=== PATIENT | male | born 1960 | race Caucasian/White ===

== ENCOUNTER 2018-04-03 14:05 | Emergency (ER) | payer MEDICARE, MEDICAID ==
[~2018-04-03] VITALS: Ht 195.6 cm; Wt 46.5 kg
[~2018-04-03 14:05] MED LIST: CLIN-80 PO
[2018-04-03 14:07] VITALS: BP 147/78
[2018-04-03] MEDS ORDERED: doxycycline hyclate 100mg tablet.DR PO STA (14:52)
[2018-04-03] MEDS ORDERED: NAPR-56 PO (15:07)
[2018-04-03] MEDS ORDERED: DOXY100C43 PO (15:07)
== END 2018-04-03 15:13 | disposition home or self-care (01) ==
LOC: ER 14:05
DX: L02.414 Cutaneous abscess of left upper limb (principal); L02.415 Cutaneous abscess of right lower limb; L03.114 Cellulitis of left upper limb; L03.113 Cellulitis of right upper limb; J44.9 Chronic obstructive pulmonary disease, unspecified; G89.29 Other chronic pain; F15.10 Other stimulant abuse, uncomplicated; Z98.890 Other specified postprocedural states; Z56.0 Unemployment, unspecified; Z60.2 Problems related to living alone; Z59.0 Homelessness; Z88.2 Allergy status to sulfonamides; Z79.899 Other long term (current) drug therapy
CPT/HCPCS: 99283; A6449

== ENCOUNTER 2018-04-14 20:20 | Inpatient (IN) | payer MEDICARE, MEDICAID ==
[~2018-04-14] VITALS: Ht 180.3 cm; Wt 86.4 kg
[~2018-04-14 20:20] MED LIST changes: -CLIN-80 PO; +CLIN300C85 PO; +DOXY100C43 PO; +NAPR-56 PO
[2018-04-15] MEDS ORDERED: ondansetron/PF 4mg/2ml inj IV ONE (00:55)
[2018-04-15] MEDS ORDERED: morphine 4 MG/ML inj SYRINge IV ONE (00:55)
[2018-04-15] MEDS ORDERED: normal saline 1000ML IV soln IVB ONE (00:55)
[2018-04-15 01:07] LABS: BASOPHILS % (AUTO) 0.2 % (0-1); EOSINOPHILS # (AUTO) 0.2 X10'3 (0-0.9); EOSINOPHILS % (AUTO) 1.3 % (0-6); HEMATOCRIT 44.4 % (42.0-52.0); HEMOGLOBIN 15.6 g/dl (14.0-17.9); LYMPHOCYTES # (AUTO) 0.7 X10'3 (1.1-4.8); LYMPHOCYTES % (AUTO) 4.3 % (21-51); MEAN CORPUSCULAR HEMOGLOBIN 32.5 PG (27.0-31.0); MEAN CORPUSCULAR HGB CONC 35.2 % (33.0-36.5); MEAN CORPUSCULAR VOLUME 92.4 FL (78-98); MEAN PLATELET VOLUME 7.1 FL (7.4-10.4); MONOCYTES # (AUTO) 0.4 X10'3 (0-0.9); MONOCYTES % (AUTO) 2.3 % (2-12); NEUTROPHILS # (AUTO) 15.5 X10'3 (1.8-7.7); NEUTROPHILS % (AUTO) 91.9 % (42-75); PLATELET COUNT 281 X10'3 (140-440); RED CELL DISTRIBUTION WIDTH 14.3 % (11.5-14.5); WHITE BLOOD COUNT 16.9 X10'3 (4.5-11.0)
[2018-04-15 01:17] LABS: PROTHROMBIN TIME 9.9 SECONDS (9.0-12.0)
[2018-04-15] MEDS ORDERED: iohexol 300mg/ml 100ml inj. ONE (01:21)
[2018-04-15 01:22] LABS: ALANINE AMINOTRANSFERASE 18 U/L (12-78); ALBUMIN 3.8 G/DL (3.4-5.0); ALKALINE PHOSPHATASE 91 IU/L (46-116); ANION GAP 8 (8-16); ASPARTATE AMINO TRANSFERASE 15 U/L (10-37); BILIRUBIN,TOTAL 0.5 MG/DL (0.1-1.0); BLOOD UREA NITROGEN 16 MG/DL (7-18); CALCIUM 9.4 MG/DL (8.5-10.1); CHLORIDE 104 MMOL/L (99-107); CREATINE KINASE 58 U/L (39-308); CREATININE 0.94 MG/DL (0.60-1.10); GLUCOSE 112 MG/DL (70-104); LIPASE 166 U/L (73-393); POTASSIUM 4.3 MMOL/L (3.5-5.1); SODIUM 139 MMOL/L (135-145); TOTAL CARBON DIOXIDE 27.3 MMOL/L (24-32); TOTAL PROTEIN 7.7 G/DL (6.4-8.2); eGFR 83 ML/MIN
[2018-04-15 03:29] LABS: CLARITY,URINE CLEAR (Clear); COLOR,URINE YELLOW (Yellow); GLUCOSE, URINE NEGATIVE (Neg); KETONES,URINE NEGATIVE (Neg); LEUKOCYTE ESTERASE ,URINE NEGATIVE (Neg); NITRITES, URINE NEGATIVE (Neg); OCCULT BLOOD,URINE NEGATIVE (Neg); PROTEIN,URINE NEGATIVE (Neg); UROBILINOGEN,URINE 0.2 E.U/dL (0.2-1.0)
[2018-04-15 03:30] LABS: UA COLLECTION TYPE CLN CATCH MIDSTREAM
[2018-04-15] MEDS ORDERED: ondansetron/PF 4mg/2ml inj IV PRN (04:45)
[2018-04-15] MEDS: normal saline 1000ml 1,000 ML IV SCH ×3 (06:21→16:58)
[2018-04-15] MEDS: morphine 4 MG/ML inj SYRINge IV PRN ×4 (06:35→20:39)
[2018-04-15] MEDS: LORazepam 2 mg/ml vial IV PRN ×3 (06:41→16:23)
[2018-04-15] MEDS ORDERED: NO HOME MEDS (07:24)
[2018-04-15 09:11] LABS: URINE AMPHETAMINE SCREEN NEGATIVE (Neg); URINE BARBITUATE SCREEN NEGATIVE (Neg); URINE BENZODIAZEPINES SCREEN NEGATIVE (Neg); URINE CANNABINOID SCREEN NEGATIVE (Neg); URINE COCAINE SCREEN NEGATIVE (Neg); URINE METHADONE SCREEN NEGATIVE (Neg); URINE OPIATE SCREEN POSITIVE (Neg); URINE PHENCYCLIDINE SCREEN NEGATIVE (Neg)
[2018-04-15 11:00] VITALS: BP 126/83
[2018-04-15 19:00] VITALS: BP 122/83
[2018-04-15] MEDS ORDERED: diatr meglu/diatrizoate 30ml oral sol.-(3 dose) bottle PO ONE (20:40)
[2018-04-15] MEDS ORDERED: diatrozoate meglu/diatrozoate sod (37% iodine) 120ML oral solution PO ONE (22:00)
[2018-04-16] VITALS: BP 121/83
[2018-04-16] MEDS: morphine 4 MG/ML inj SYRINge IV PRN (02:24)
[2018-04-16] MEDS: normal saline 1000ml 1,000 ML IV SCH ×2 (03:35→22:22)
[2018-04-16] MEDS: LORazepam 2 mg/ml vial IV PRN ×2 (05:03→17:25)
[2018-04-16 05:27] LABS: BASOPHILS % (AUTO) 0.2 % (0-1); EOSINOPHILS # (AUTO) 0.2 X10'3 (0-0.9); EOSINOPHILS % (AUTO) 1.8 % (0-6); HEMATOCRIT 39.6 % (42.0-52.0); HEMOGLOBIN 14.1 g/dl (14.0-17.9); LYMPHOCYTES % (AUTO) 10.1 % (21-51); MEAN CORPUSCULAR HEMOGLOBIN 32.8 PG (27.0-31.0); MEAN CORPUSCULAR HGB CONC 35.7 % (33.0-36.5); MEAN CORPUSCULAR VOLUME 91.8 FL (78-98); MEAN PLATELET VOLUME 7.4 FL (7.4-10.4); MONOCYTES # (AUTO) 0.4 X10'3 (0-0.9); MONOCYTES % (AUTO) 3.6 % (2-12); NEUTROPHILS # (AUTO) 8.6 X10'3 (1.8-7.7); NEUTROPHILS % (AUTO) 84.3 % (42-75); PLATELET COUNT 205 X10'3 (140-440); RED BLOOD COUNT 4.31 X10'6 (4.70-6.10); RED CELL DISTRIBUTION WIDTH 13.9 % (11.5-14.5); WHITE BLOOD COUNT 10.1 X10'3 (4.5-11.0)
[2018-04-16 05:51] LABS: ALANINE AMINOTRANSFERASE 18 U/L (12-78); ALBUMIN 2.9 G/DL (3.4-5.0); ALBUMIN/GLOBULIN RATIO 0.9 (1.1-1.5); ALKALINE PHOSPHATASE 69 IU/L (46-116); ANION GAP 11 (8-16); ASPARTATE AMINO TRANSFERASE 17 U/L (10-37); BILIRUBIN,TOTAL 0.8 MG/DL (0.1-1.0); BLOOD UREA NITROGEN 13 MG/DL (7-18); BUN/CREATININE RATIO 16.7 (5.4-32.0); CALCIUM 8.5 MG/DL (8.5-10.1); CHLORIDE 108 MMOL/L (99-107); CREATININE 0.78 MG/DL (0.60-1.10); GLUCOSE 78 MG/DL (70-104); SODIUM 141 MMOL/L (135-145); TOTAL CARBON DIOXIDE 22.1 MMOL/L (24-32); TOTAL PROTEIN 6.2 G/DL (6.4-8.2); eGFR > 90 ML/MIN
[2018-04-16 07:00] VITALS: BP 128/80
[2018-04-16 11:29] VITALS: BP 116/69
[2018-04-16 19:30] VITALS: BP 93/59
[2018-04-17] VITALS: BP 96/58
[2018-04-17 05:43] LABS: BASOPHILS % (AUTO) 0.5 % (0-1); EOSINOPHILS # (AUTO) 0.2 X10'3 (0-0.9); EOSINOPHILS % (AUTO) 2.6 % (0-6); HEMATOCRIT 38.6 % (42.0-52.0); HEMOGLOBIN 13.7 g/dl (14.0-17.9); LYMPHOCYTES # (AUTO) 1.3 X10'3 (1.1-4.8); LYMPHOCYTES % (AUTO) 18.5 % (21-51); MEAN CORPUSCULAR HEMOGLOBIN 32.9 PG (27.0-31.0); MEAN CORPUSCULAR HGB CONC 35.5 % (33.0-36.5); MEAN CORPUSCULAR VOLUME 92.6 FL (78-98); MEAN PLATELET VOLUME 7.4 FL (7.4-10.4); MONOCYTES # (AUTO) 0.4 X10'3 (0-0.9); MONOCYTES % (AUTO) 5.8 % (2-12); NEUTROPHILS % (AUTO) 72.6 % (42-75); PLATELET COUNT 183 X10'3 (140-440); RED BLOOD COUNT 4.17 X10'6 (4.70-6.10); RED CELL DISTRIBUTION WIDTH 14.5 % (11.5-14.5); WHITE BLOOD COUNT 6.9 X10'3 (4.5-11.0)
[2018-04-17 06:00] LABS: ALANINE AMINOTRANSFERASE 13 U/L (12-78); ALBUMIN 2.7 G/DL (3.4-5.0); ALBUMIN/GLOBULIN RATIO 0.8 (1.1-1.5); ALKALINE PHOSPHATASE 73 IU/L (46-116); ANION GAP 8 (8-16); ASPARTATE AMINO TRANSFERASE 11 U/L (10-37); BILIRUBIN,TOTAL 0.3 MG/DL (0.1-1.0); BLOOD UREA NITROGEN 15 MG/DL (7-18); BUN/CREATININE RATIO 19.2 (5.4-32.0); CALCIUM 8.1 MG/DL (8.5-10.1); CHLORIDE 109 MMOL/L (99-107); CREATININE 0.78 MG/DL (0.60-1.10); GLUCOSE 100 MG/DL (70-104); SODIUM 141 MMOL/L (135-145); TOTAL CARBON DIOXIDE 24.1 MMOL/L (24-32); eGFR > 90 ML/MIN
[2018-04-17 07:00] VITALS: BP 107/73
[2018-04-17] MEDS: LORazepam 2 mg/ml vial IV PRN (07:47)
[2018-04-17] MEDS: normal saline 1000ml 1,000 ML IV SCH (07:52)
[2018-04-17 11:00] VITALS: BP 109/73
[2018-04-20] MEDS ORDERED: DOXY100C43 PO (10:25)
== END 2018-04-17 13:33 | disposition home or self-care (01) | DRG 389 ==
LOC: ER 20:21 → ED HOLD 04-15 04:41 → SUR 3N 04-15 10:35
PROVIDERS: ADMIT Internal Medicine; ATTEND Family Medicine
PROC: 0D9670Z Drainage of Stomach with Drainage Device, Via Natural or Artificial Opening (ICD-10-PCS; principal; 2018-04-15)
PROC: BW211ZZ Computerized Tomography (CT Scan) of Abdomen and Pelvis using Low Osmolar Contrast (ICD-10-PCS; 2018-04-15)
DX: K56.609 Unspecified intestinal obstruction, unspecified as to partial versus complete obstruction (principal); J98.11 Atelectasis; F15.90 Other stimulant use, unspecified, uncomplicated; F17.210 Nicotine dependence, cigarettes, uncomplicated; G89.29 Other chronic pain; J44.9 Chronic obstructive pulmonary disease, unspecified; Z59.0 Homelessness; Z90.49 Acquired absence of other specified parts of digestive tract; Z88.2 Allergy status to sulfonamides; Z88.8 Allergy status to other drugs, medicaments and biological substances; Z71.6 Tobacco abuse counseling
CPT/HCPCS: 36415; 71045; 74176; 74177; 80053; 80305; 80320; 81003; 82550; 83690; 85025; 85610; 87070; 93005; 99285; J2060; J2270; J2405; J7030; Q9963; Q9967

== ENCOUNTER 2018-08-18 16:27 | Emergency (ER) | payer MEDICARE, OTHER ==
[~2018-08-18] VITALS: Ht 195.6 cm; Wt 59.1 kg
[2018-08-18 16:35] VITALS: BP 108/78
[2018-08-18] MEDS ORDERED: ketorolac trometh inj. 60 MG/2 ML VIAL IM ONE (18:00)
[2018-08-18] MEDS ORDERED: MELO-100 PO (18:09)
== END 2018-08-18 18:26 | disposition home or self-care (01) ==
LOC: ER 16:28
DX: S42.002A Fracture of unspecified part of left clavicle, initial encounter for closed fracture (principal); S01.01XA Laceration without foreign body of scalp, initial encounter; J44.9 Chronic obstructive pulmonary disease, unspecified; G89.29 Other chronic pain; F15.90 Other stimulant use, unspecified, uncomplicated; Z98.890 Other specified postprocedural states; Z60.2 Problems related to living alone; Z59.0 Homelessness; Z56.0 Unemployment, unspecified; Z88.2 Allergy status to sulfonamides; Z79.899 Other long term (current) drug therapy; W01.0XXA Fall on same level from slipping, tripping and stumbling without subsequent striking against object, initial encounter; Y93.89 Activity, other specified; Y92.89 Other specified places as the place of occurrence of the external cause; Y99.8 Other external cause status
CPT/HCPCS: 70450; 73030; 96372; 99284; A4565; J1885

== ENCOUNTER 2020-02-13 22:54 | Inpatient (IN) | payer MEDICARE, MEDICAID ==
[~2020-02-13] VITALS: Ht 185.4 cm; Wt 68.2 kg
[~2020-02-13 22:54] MED LIST changes: -CLIN300C85 PO; -DOXY100C43 PO; +MELO-100 PO; -NAPR-56 PO
[2020-02-13] MEDS ORDERED: normal saline 1000ML IV soln IVB ONE (23:10)
[2020-02-13] MEDS ORDERED: ondansetron/PF 4mg/2ml inj IV ONE (23:10)
[2020-02-13] MEDS: morphine 4 MG/ML inj SYRINge IV PRN (23:17)
[2020-02-13 23:28] LABS: BASOPHILS # (AUTO) 0.1 X10'3 (0-0.2); BASOPHILS % (AUTO) 0.4 % (0-1); EOSINOPHILS % (AUTO) 0.2 % (0-6); HEMATOCRIT 45.4 % (42.0-52.0); LYMPHOCYTES # (AUTO) 1.2 X10'3 (1.1-4.8); LYMPHOCYTES % (AUTO) 7.8 % (21-51); MEAN CORPUSCULAR HEMOGLOBIN 32.4 PG (27.0-31.0); MEAN CORPUSCULAR HGB CONC 35.2 g/dL (33.0-36.5); MEAN PLATELET VOLUME 7.3 FL (7.4-10.4); MONOCYTES # (AUTO) 0.8 X10'3 (0-0.9); MONOCYTES % (AUTO) 4.8 % (2-12); NEUTROPHILS # (AUTO) 13.9 X10'3 (1.8-7.7); NEUTROPHILS % (AUTO) 86.8 % (42-75); PLATELET COUNT 274 X10'3 (140-440); RED BLOOD COUNT 4.93 X10'6 (4.70-6.10); RED CELL DISTRIBUTION WIDTH 13.6 % (11.5-14.5)
--- NOTE | 2020-02-13 23:30 | NUR ---
PT'S RIGHT ARM HAD REDNESS AND SWELLING THAT APPEARED TO BE AN ALLERGIC REACTION. IT WAS LOCAL ONLY. IT OCCURED PRIOR TO GETTING MORPHINE AND ZOFRAN. PT DENIES CHEST PAIN, SOB, CHEST TIGHTNESS, OR ITCHINESS IN THROAT. PT STATES HE FEEL'S FINE. DR. DENNIS MADE AWARE. NO OTHER ISSUES.
--- NOTE | 2020-02-13 23:40 | NUR ---
PT STATES HE'S NOT ABLE TO VOID AT THIS TIME. WILL WAIT UNTIL FLUIDS ARE DONE INFUSING.
[2020-02-13 23:42] LABS: ALANINE AMINOTRANSFERASE 13 U/L (12-78); ALBUMIN 3.5 G/DL (3.4-5.0); ALBUMIN/GLOBULIN RATIO 0.9 (1.1-1.5); ALKALINE PHOSPHATASE 97 IU/L (46-116); ANION GAP 9 (8-16); ASPARTATE AMINO TRANSFERASE 17 U/L (10-37); BILIRUBIN,TOTAL 0.4 MG/DL (0.1-1.0); BLOOD UREA NITROGEN 15 MG/DL (7-18); CALCIUM 8.9 MG/DL (8.5-10.1); CHLORIDE 103 MMOL/L (99-107); CREATININE 0.79 MG/DL (0.60-1.10); GLUCOSE 116 MG/DL (70-104); LIPASE 129 U/L (73-393); POTASSIUM 4.3 MMOL/L (3.5-5.1); SODIUM 138 MMOL/L (135-145); TOTAL CARBON DIOXIDE 25.8 MMOL/L (24-32); TOTAL PROTEIN 7.4 G/DL (6.4-8.2); eGFR > 90 ML/MIN
[2020-02-13] MEDS ORDERED: diphenhydrAMINE 50 mg/ml inj IV ONE (23:50)
[2020-02-14] MEDS ORDERED: NO HOME MEDS (00:27)
[2020-02-14] MEDS: morphine 4 MG/ML inj SYRINge IV PRN (00:32)
[2020-02-14] MEDS ORDERED: LIDOcaine 2% 10ml TOPICAL JELLY (Urojet) MM ONE (00:55)
[2020-02-14] MEDS ORDERED: LORazepam 2 mg/ml vial IV ONE (00:55)
--- NOTE | 2020-02-14 01:04 | NUR ---
RESISTANCE FELT IN BOTH NOSTRILS WHEN ATTEMPTING TO PLACE NG TUBE SIZE 16F. PT MOVES HEAD A LOT AND BECOMES ANXIOUS. PT GIVEN IV ATIVAN AND LIDOCAIN JELLY IN RIGHT NOSTRIL TO ASSIST WITH PLACING AN NG TUBE. WILL USE SILICONE NG TUBE FOR 2ND ATTEMPT. DR DENNIS AND DR. COVARRUBIAS MADE AWARE.
[2020-02-14] MEDS ORDERED: ondansetron/PF 4mg/2ml inj IV PRN (01:10)
[2020-02-14] MEDS ORDERED: morphine 2 MG/ML inj. syringe IV PRN (01:10)
[2020-02-14] MEDS: potassium Cl 20mEq in NS 1,000 ML IV SCH ×3 (02:10→16:00)
--- NOTE | 2020-02-14 02:10 | NUR ---
I have received report from Delfina ED RN and had the opportunity to ask questions and assume patient care.
[2020-02-14 02:30] VITALS: BP 168/98
[2020-02-14 03:53] VITALS: BP 162/91
--- NOTE | 2020-02-14 06:30 | NUR ---
Patient in room [facility] 349. I have received report from JOANNE ART and had the opportunity to ask questions and assume patient care.
--- NOTE | 2020-02-14 06:39 | NUR ---
Problems reprioritized. Patient report given, questions answered & plan of care reviewed with KAELYN Mehta.
[2020-02-14] MEDS: morphine 2 MG/ML inj. syringe IV PRN ×2 (09:41→15:58)
[2020-02-14 10:52] VITALS: BP 151/98
[2020-02-14 11:00] VITALS: BP 127/59
[2020-02-14] MEDS: heparin, porcine 5000 units/ml vial SQ SCH ×2 (11:29→19:41)
[2020-02-14] MEDS ORDERED: hydrALAZINE 20mg/ml inj. IV PRN (12:20)
[2020-02-14 12:46] LABS: CLARITY,URINE SLIGHTLY CLOUDY (Clear); COLOR,URINE STRAW (Yellow); GLUCOSE, URINE NEGATIVE (Neg); KETONES,URINE NEGATIVE (Neg); LEUKOCYTE ESTERASE ,URINE SMALL (Neg); NITRITES, URINE NEGATIVE (Neg); OCCULT BLOOD,URINE NEGATIVE (Neg); PH,URINE 5.5 (4.8-8.0); PROTEIN,URINE NEGATIVE (Neg); UA COLLECTION TYPE NON-SPECIFIED; UROBILINOGEN,URINE 0.2 E.U/dL (0.2-1.0)
[2020-02-14 12:52] LABS: BACTERIA,URINE FEW /HPF (Neg); MUCUS STRANDS NONE SEEN /LPF (Neg); RBC,URINE NONE SEEN /HPF (0-2); SQUAMOUS EPITHELIAL CELL,UR FEW /LPF (FEW); WBC CLUMPS,URINE FEW /HPF (NEGATIVE)
--- NOTE | 2020-02-14 17:31 | NUR ---
Patient coughed began to cough and NG ended up in mouth. Patient has had bowel movement during shift and 500 mL out of clear liquid from NG. Hospitalist Okayed to leave out NG at this time.
[2020-02-14 18:00] VITALS: BP 126/76
--- NOTE | 2020-02-14 18:37 | NUR ---
Patient in room [facility] 349. I have received report from Tyson ART and had the opportunity to ask questions and assume patient care.
--- NOTE | 2020-02-14 19:30 | NUR ---
Problems reprioritized. Patient report given, questions answered & plan of care reviewed with DAVIS ART.
[2020-02-15] VITALS: BP 105/70
[2020-02-15] MEDS: potassium Cl 20mEq in NS 1,000 ML IV SCH ×3 (02:09→22:30)
[2020-02-15 05:16] LABS: BASOPHILS # (AUTO) 0.1 X10'3 (0-0.2); BASOPHILS % (AUTO) 0.7 % (0-1); EOSINOPHILS # (AUTO) 0.2 X10'3 (0-0.9); EOSINOPHILS % (AUTO) 2.6 % (0-6); HEMATOCRIT 43.9 % (42.0-52.0); HEMOGLOBIN 15.3 g/dl (14.0-17.9); LYMPHOCYTES # (AUTO) 1.5 X10'3 (1.1-4.8); LYMPHOCYTES % (AUTO) 22.4 % (21-51); MEAN CORPUSCULAR HEMOGLOBIN 32.7 PG (27.0-31.0); MEAN CORPUSCULAR HGB CONC 34.9 g/dL (33.0-36.5); MEAN CORPUSCULAR VOLUME 93.8 FL (78-98); MEAN PLATELET VOLUME 7.8 FL (7.4-10.4); MONOCYTES # (AUTO) 0.5 X10'3 (0-0.9); MONOCYTES % (AUTO) 6.8 % (2-12); NEUTROPHILS # (AUTO) 4.7 X10'3 (1.8-7.7); NEUTROPHILS % (AUTO) 67.5 % (42-75); PLATELET COUNT 225 X10'3 (140-440); RED BLOOD COUNT 4.68 X10'6 (4.70-6.10); RED CELL DISTRIBUTION WIDTH 13.7 % (11.5-14.5); WHITE BLOOD COUNT 6.9 X10'3 (4.5-11.0)
[2020-02-15 05:36] LABS: ALANINE AMINOTRANSFERASE 11 U/L (12-78); ALBUMIN 2.8 G/DL (3.4-5.0); ALBUMIN/GLOBULIN RATIO 0.8 (1.1-1.5); ALKALINE PHOSPHATASE 74 IU/L (46-116); ANION GAP 7 (8-16); ASPARTATE AMINO TRANSFERASE 18 U/L (10-37); BILIRUBIN,TOTAL 0.8 MG/DL (0.1-1.0); BLOOD UREA NITROGEN 12 MG/DL (7-18); BUN/CREATININE RATIO 14.1 (5.4-32.0); CALCIUM 8.5 MG/DL (8.5-10.1); CHLORIDE 107 MMOL/L (99-107); CREATININE 0.85 MG/DL (0.60-1.10); GLUCOSE 78 MG/DL (70-104); POTASSIUM 4.5 MMOL/L (3.5-5.1); SODIUM 141 MMOL/L (135-145); TOTAL CARBON DIOXIDE 26.8 MMOL/L (24-32); TOTAL PROTEIN 6.5 G/DL (6.4-8.2); eGFR > 90 ML/MIN
--- NOTE | 2020-02-15 06:37 | NUR ---
Problems reprioritized. Patient report given, questions answered & plan of care reviewed with Franny ART.
--- NOTE | 2020-02-15 06:47 | NUR ---
Patient in room [facility] 349. I have received report from KAELYN Olivas and had the opportunity to ask questions and assume patient care.
[2020-02-15 08:00] VITALS: BP 106/71
[2020-02-15] MEDS: heparin, porcine 5000 units/ml vial SQ SCH ×2 (10:04→19:36)
[2020-02-15 12:00] VITALS: BP 109/83
[2020-02-15] MEDS: morphine 2 MG/ML inj. syringe IV PRN (14:53)
--- NOTE | 2020-02-15 18:26 | NUR ---
Problems reprioritized. Patient report given, questions answered & plan of care reviewed with KAELYN Mcdaniel. pt resting in bed. Tolerated clear liquid diet well. medicated for pain PRN x1. Pt had BM x2 this shift.
[2020-02-15 20:00] VITALS: BP 114/72
--- NOTE | 2020-02-15 23:50 | NUR ---
Patient in room [facility] 349. I have received report from Susan ART and had the opportunity to ask questions and assume patient care.
[2020-02-15 23:55] VITALS: BP 114/64
--- NOTE | 2020-02-16 04:40 | NUR ---
Due to system unavailability all documentation completed is found in the paper chart during the following time frame: starting date: 02-15-2020 time: 2341 ending date: 02-16-2020 time:[id number]
[2020-02-16 05:17] LABS: BASOPHILS % (AUTO) 0.5 % (0-1); EOSINOPHILS # (AUTO) 0.3 X10'3 (0-0.9); EOSINOPHILS % (AUTO) 2.9 % (0-6); HEMATOCRIT 41.1 % (42.0-52.0); HEMOGLOBIN 14.7 g/dl (14.0-17.9); LYMPHOCYTES % (AUTO) 10.3 % (21-51); MEAN CORPUSCULAR HEMOGLOBIN 33.4 PG (27.0-31.0); MEAN CORPUSCULAR HGB CONC 35.8 g/dL (33.0-36.5); MEAN CORPUSCULAR VOLUME 93.3 FL (78-98); MEAN PLATELET VOLUME 7.7 FL (7.4-10.4); MONOCYTES # (AUTO) 0.6 X10'3 (0-0.9); MONOCYTES % (AUTO) 5.6 % (2-12); NEUTROPHILS % (AUTO) 80.7 % (42-75); PLATELET COUNT 203 X10'3 (140-440); RED BLOOD COUNT 4.41 X10'6 (4.70-6.10); RED CELL DISTRIBUTION WIDTH 13.4 % (11.5-14.5); WHITE BLOOD COUNT 9.9 X10'3 (4.5-11.0)
[2020-02-16 05:34] LABS: ALANINE AMINOTRANSFERASE 11 U/L (12-78); ALBUMIN 2.8 G/DL (3.4-5.0); ALBUMIN/GLOBULIN RATIO 0.8 (1.1-1.5); ALKALINE PHOSPHATASE 70 IU/L (46-116); ANION GAP 8 (8-16); ASPARTATE AMINO TRANSFERASE 16 U/L (10-37); BILIRUBIN,TOTAL 0.5 MG/DL (0.1-1.0); BLOOD UREA NITROGEN 9 MG/DL (7-18); BUN/CREATININE RATIO 12.2 (5.4-32.0); CALCIUM 8.4 MG/DL (8.5-10.1); CHLORIDE 107 MMOL/L (99-107); CREATININE 0.74 MG/DL (0.60-1.10); GLUCOSE 87 MG/DL (70-104); POTASSIUM 4.3 MMOL/L (3.5-5.1); SODIUM 139 MMOL/L (135-145); TOTAL CARBON DIOXIDE 24.3 MMOL/L (24-32); TOTAL PROTEIN 6.3 G/DL (6.4-8.2); eGFR > 90 ML/MIN
--- NOTE | 2020-02-16 06:29 | NUR ---
Problems reprioritized. Patient report given, questions answered & plan of care reviewed with Carmel ART.
--- NOTE | 2020-02-16 06:43 | NUR ---
Patient in room [facility] 349. I have received report from KAELYN Mcdaniel and had the opportunity to ask questions and assume patient care.
[2020-02-16] MEDS: potassium Cl 20mEq in NS 1,000 ML IV SCH (07:45)
[2020-02-16] MEDS: heparin, porcine 5000 units/ml vial SQ SCH (07:46)
[2020-02-16 07:53] VITALS: BP 98/54
[2020-02-16 11:03] VITALS: BP 106/69
--- NOTE | 2020-02-16 13:34 | NUR ---
Patient discharged back to his living situation. Patient declined going to the [facility]. Patient PIV removed with cannula intact. Patient taken from unit via wheelchair with x1 staff member. Patient alert, oriented and in no apparent distress at time of discharge. Patient had own clothing to wear and left right after finishing lunch. Patient declined taking discharge packet because he stated that it is just too much to take with him. The instructions were discussed with the patient and he stated an understanding. Patient was encouraged to follow up with the [facility] or a PCP, patient stated, "I'll be fine, I avoid doctors like the plague, I don't want to follow up".
--- NOTE | 2020-02-18 13:53 | NUR ---
Case management DC follow up: unable to contact, goes direct to recording, no ringing " not set up for vm"
== END 2020-02-16 13:07 | disposition home or self-care (01) | DRG 390 ==
LOC: ER 22:55 → ED HOLD 02-14 01:07 → SUR 3N 02-14 02:34
PROVIDERS: ADMIT Internal Medicine; ATTEND Internal Medicine
PROC: 0D9670Z Drainage of Stomach with Drainage Device, Via Natural or Artificial Opening (ICD-10-PCS; principal; 2020-02-14)
DX: K56.609 Unspecified intestinal obstruction, unspecified as to partial versus complete obstruction (principal); D72.829 Elevated white blood cell count, unspecified; F12.90 Cannabis use, unspecified, uncomplicated; F17.200 Nicotine dependence, unspecified, uncomplicated; J44.9 Chronic obstructive pulmonary disease, unspecified; G89.29 Other chronic pain; Z66 Do not resuscitate; Z80.0 Family history of malignant neoplasm of digestive organs; Z90.49 Acquired absence of other specified parts of digestive tract; Z59.0 Homelessness; Z87.19 Personal history of other diseases of the digestive system; Z88.2 Allergy status to sulfonamides; Z88.8 Allergy status to other drugs, medicaments and biological substances
CPT/HCPCS: 36415; 74018; 74176; 80053; 81001; 83605; 83690; 84145; 85025; 87081; 87088; 96361; 96374; 96375; 96376; 99285; G0378; J1200; J1644; J2060; J2270; J2405; J3480; J7030

== ENCOUNTER 2022-04-21 11:58 | Inpatient (IN) | payer MEDICAID, MEDICARE ==
[~2022-04-21] VITALS: Ht 193 cm; Wt 59.1 kg
[~2022-04-21 11:58] MED LIST changes: -MELO-100 PO; +NO HOME MEDS
[2022-04-21 13:37] LABS: BASOPHILS % (AUTO) 0.2 % (0-1); EOSINOPHILS % (AUTO) 0 % (0-6); HEMATOCRIT 45.3 % (42.0-52.0); HEMOGLOBIN 15.8 g/dl (14.0-17.9); LYMPHOCYTES # (AUTO) 0.6 X10'3 (1.1-4.8); LYMPHOCYTES % (AUTO) 2.8 % (21-51); MEAN CORPUSCULAR HEMOGLOBIN 32.2 PG (27.0-31.0); MEAN CORPUSCULAR HGB CONC 34.9 g/dL (33.0-36.5); MEAN CORPUSCULAR VOLUME 92.3 FL (78-98); MEAN PLATELET VOLUME 7.8 FL (7.4-10.4); MONOCYTES # (AUTO) 0.9 X10'3 (0-0.9); MONOCYTES % (AUTO) 4.5 % (2-12); NEUTROPHILS # (AUTO) 19.3 X10'3 (1.8-7.7); NEUTROPHILS % (AUTO) 92.5 % (42-75); PLATELET COUNT 250 X10'3 (140-440); RED CELL DISTRIBUTION WIDTH 13.9 % (11.5-14.5); WHITE BLOOD COUNT 20.8 X10'3 (4.5-11.0)
[2022-04-21 13:51] LABS: ALANINE AMINOTRANSFERASE 17 U/L (12-78); ALBUMIN 2.8 G/DL (3.4-5.0); ALBUMIN/GLOBULIN RATIO 0.6 (1.1-1.5); ALKALINE PHOSPHATASE 101 IU/L (46-116); ANION GAP 11 (8-16); ASPARTATE AMINO TRANSFERASE 21 U/L (10-37); BILIRUBIN,TOTAL 1.1 MG/DL (0.1-1.0); BLOOD UREA NITROGEN 43 MG/DL (7-18); BUN/CREATININE RATIO 40.6 (5.4-32.0); CALCIUM 8.7 MG/DL (8.5-10.1); CHLORIDE 97 MMOL/L (99-107); CREATININE 1.06 MG/DL (0.60-1.10); GLUCOSE 104 MG/DL (70-104); POTASSIUM 3.6 MMOL/L (3.5-5.1); SODIUM 134 MMOL/L (135-145); TOTAL CARBON DIOXIDE 26.1 MMOL/L (24-32); TOTAL PROTEIN 7.7 G/DL (6.4-8.2); eGFR 72 ML/MIN
[2022-04-21] MEDS ORDERED: CefTRIAXone 2gm/NS 100ml IVPB 100 ML IV ONE (16:55)
[2022-04-21] MEDS ORDERED: normal saline 1000ml 1,000 ML IV ONE (17:05)
[2022-04-21] MEDS ORDERED: normal saline 1000ML IV soln IVB ONE (17:05)
[2022-04-21] MEDS ORDERED: ondansetron/PF 4mg/2ml inj IV PRN (18:10)
[2022-04-21] MEDS ORDERED: mag hydrox/Alum hydrox/simeth 30ml oral suspension PO PRN (18:10)
[2022-04-21] MEDS ORDERED: magnesium hydroxide 30ml (MOM) UD suspension PO PRN (18:10)
[2022-04-21] MEDS ORDERED: acetaminophen 325mg tablet PO PRN (18:10)
[2022-04-21] MEDS ORDERED: cefTRIAXone 1g/NS 100ml IVPB 100 ML IV SCH ×2 (18:10→20:31)
[2022-04-21] MEDS: normal saline 1000ml 1,000 ML IV SCH (19:02)
[2022-04-21] MEDS ORDERED: predniSONE 20 mg tablet PO ONE (19:45)
[2022-04-21] MEDS ORDERED: albuterol 2.5 MG/3 ML nebule NEB PRN (19:45)
[2022-04-21] MEDS: docusate sod 100mg capsule PO SCH (20:00)
[2022-04-21] MEDS: azithromycin 250mg tablet PO SCH (20:14)
[2022-04-21] MEDS: enoxaparin 30mg/0.3ml syringe SQ SCH (20:14)
--- NOTE | 2022-04-21 20:18 | NUR ---
REPORT GIVEN TO CASE MCDERMOTT
--- NOTE | 2022-04-21 20:25 | NUR ---
Received pt from Er via [facility] to bed. Oriented to room and routine. received report from KAELYN Addendum: 04/21/22 at 2038 by Claus Lennon RN Amended: Links added.
[2022-04-21 20:40] VITALS: BP 109/69
[2022-04-21 22:00] VITALS: BP 88/49
--- NOTE | 2022-04-22 06:30 | NUR ---
Problems reprioritized. Patient report given, questions answered & plan of care reviewed with KAELYN Henning. Addendum: 04/22/22 at 0653 by Claus Lennon RN Amended: Links added.
[2022-04-22 06:52] VITALS: BP 95/52
--- NOTE | 2022-04-22 07:13 | NUR ---
Patient in room [facility] 4023. I have received report from Addie ART and had the opportunity to ask questions and assume patient care.
--- NOTE | 2022-04-22 07:13 | NUR ---
Problems reprioritized. Patient report given, questions answered & plan of care reviewed with KAELYN CHRISTINA. Addendum: 04/22/22 at 0713 by Claus Lennon RN Amended: Links added.
[2022-04-22] MEDS: predniSONE 20 mg tablet PO SCH (07:33)
[2022-04-22] MEDS: enoxaparin 30mg/0.3ml syringe SQ SCH ×2 (07:34→20:58)
[2022-04-22] MEDS: azithromycin 250mg tablet PO SCH (07:34)
[2022-04-22] MEDS: docusate sod 100mg capsule PO SCH ×2 (07:34→20:00)
[2022-04-22 07:52] LABS: ALBUMIN 2.5 G/DL (3.4-5.0); ANION GAP 11 (8-16); BLOOD UREA NITROGEN 30 MG/DL (7-18); CALCIUM 8.7 MG/DL (8.5-10.1); CHLORIDE 101 MMOL/L (99-107); CREATININE 0.79 MG/DL (0.60-1.10); GLUCOSE 112 MG/DL (70-104); POTASSIUM 3.7 MMOL/L (3.5-5.1); SODIUM 134 MMOL/L (135-145); TOTAL CARBON DIOXIDE 22.2 MMOL/L (24-32); eGFR > 90 ML/MIN
[2022-04-22 07:56] LABS: BASOPHILS % (AUTO) 0.3 % (0-1); EOSINOPHILS % (AUTO) 0.1 % (0-6); HEMATOCRIT 43.8 % (42.0-52.0); HEMOGLOBIN 15.1 g/dl (14.0-17.9); LYMPHOCYTES # (AUTO) 0.5 X10'3 (1.1-4.8); LYMPHOCYTES % (AUTO) 7.2 % (21-51); MEAN CORPUSCULAR HEMOGLOBIN 32.4 PG (27.0-31.0); MEAN CORPUSCULAR HGB CONC 34.5 g/dL (33.0-36.5); MEAN CORPUSCULAR VOLUME 94.1 FL (78-98); MEAN PLATELET VOLUME 8.2 FL (7.4-10.4); MONOCYTES # (AUTO) 0.5 X10'3 (0-0.9); MONOCYTES % (AUTO) 7.4 % (2-12); PLATELET COUNT 200 X10'3 (140-440); RED BLOOD COUNT 4.65 X10'6 (4.70-6.10); RED CELL DISTRIBUTION WIDTH 14.2 % (11.5-14.5)
[2022-04-22] MEDS: normal saline 1000ml 1,000 ML IV SCH (08:28)
[2022-04-22] MEDS ORDERED: guaiFENesin 200 MG/10 ML oral syrup UD cup PO PRN (09:45)
[2022-04-22 10:00] VITALS: BP 101/71
[2022-04-22 18:00] VITALS: BP 121/65
--- NOTE | 2022-04-22 18:59 | NUR ---
Problems reprioritized. Patient report given, questions answered & plan of care reviewed with Romina ART.
--- NOTE | 2022-04-22 19:14 | NUR ---
Patient in room [facility]TH[facility] 4023. I have received report from PANTERA ART and had the opportunity to ask questions and assume patient care.
[2022-04-23] MEDS: normal saline 1000ml 1,000 ML IV SCH (02:36)
--- NOTE | 2022-04-23 06:14 | NUR ---
Problems reprioritized. Patient report given, questions answered & plan of care reviewed with MATEUSZ ART.
[2022-04-23 06:29] LABS: BASOPHILS % (AUTO) 0.2 % (0-1); EOSINOPHILS # (AUTO) 0.1 X10'3 (0-0.9); HEMATOCRIT 39.7 % (42.0-52.0); HEMOGLOBIN 13.6 g/dl (14.0-17.9); LYMPHOCYTES # (AUTO) 1.4 X10'3 (1.1-4.8); LYMPHOCYTES % (AUTO) 17.3 % (21-51); MEAN CORPUSCULAR HEMOGLOBIN 32.2 PG (27.0-31.0); MEAN CORPUSCULAR HGB CONC 34.2 g/dL (33.0-36.5); MEAN CORPUSCULAR VOLUME 94.1 FL (78-98); MEAN PLATELET VOLUME 7.9 FL (7.4-10.4); MONOCYTES # (AUTO) 1.1 X10'3 (0-0.9); MONOCYTES % (AUTO) 13.6 % (2-12); NEUTROPHILS # (AUTO) 5.3 X10'3 (1.8-7.7); NEUTROPHILS % (AUTO) 67.9 % (42-75); PLATELET COUNT 212 X10'3 (140-440); RED BLOOD COUNT 4.22 X10'6 (4.70-6.10); RED CELL DISTRIBUTION WIDTH 14.2 % (11.5-14.5); WHITE BLOOD COUNT 7.8 X10'3 (4.5-11.0)
[2022-04-23 06:30] VITALS: BP 111/73
[2022-04-23 06:30] LABS: ALBUMIN 2.3 G/DL (3.4-5.0); ANION GAP 12 (8-16); BLOOD UREA NITROGEN 27 MG/DL (7-18); BUN/CREATININE RATIO 39.1 (5.4-32.0); CALCIUM 8.4 MG/DL (8.5-10.1); CHLORIDE 107 MMOL/L (99-107); CREATININE 0.69 MG/DL (0.60-1.10); GLUCOSE 103 MG/DL (70-104); POTASSIUM 3.9 MMOL/L (3.5-5.1); SODIUM 138 MMOL/L (135-145); TOTAL CARBON DIOXIDE 19.3 MMOL/L (24-32); eGFR > 90 ML/MIN
[2022-04-23] MEDS: predniSONE 20 mg tablet PO SCH (07:29)
[2022-04-23] MEDS: enoxaparin 30mg/0.3ml syringe SQ SCH (07:29)
[2022-04-23] MEDS: docusate sod 100mg capsule PO SCH (07:29)
[2022-04-23] MEDS: azithromycin 250mg tablet PO SCH (07:29)
[2022-04-23 10:02] VITALS: BP 111/69
[2022-04-23] MEDS ORDERED: LEVO500T90 PO (11:11)
--- NOTE | 2022-04-23 12:48 | NUR ---
Cab has been called. Awaiting arrival for patient to discharge to requested destination.
--- NOTE | 2022-04-23 13:00 | NUR ---
Patient stable and appropriate for discharge. IV removed, property assessment monitor removed, all belongings taken from room. Patient given extra clothes and a sack lunch to-go. New RX called into [facility] @ [address]. Patient will be picked up by [facility] cab and taken through [facility] to chart picker RX then he requested to be dropped off at [facility]. afterwards. All discharge instructions and education given and reviewed with patient, all questions answered.
== END 2022-04-23 13:01 | disposition home or self-care (01) | DRG 720 ==
LOC: ER 11:59 → ED HOLD 18:12 → EDBEDREQ 19:56 → ORTHO 4S 20:26
PROVIDERS: ADMIT Family Medicine; ATTEND Family Medicine
DX: A41.9 Sepsis, unspecified organism (principal); J18.9 Pneumonia, unspecified organism; J44.0 Chronic obstructive pulmonary disease with (acute) lower respiratory infection; Z20.822 Contact with and (suspected) exposure to COVID-19; F17.210 Nicotine dependence, cigarettes, uncomplicated; R04.2 Hemoptysis; G89.4 Chronic pain syndrome; Z60.2 Problems related to living alone; K52.9 Noninfective gastroenteritis and colitis, unspecified; Z28.310 Unvaccinated for COVID-19; Z59.00 Homelessness unspecified; Z90.49 Acquired absence of other specified parts of digestive tract; Z56.0 Unemployment, unspecified; Z88.2 Allergy status to sulfonamides; Z88.8 Allergy status to other drugs, medicaments and biological substances
CPT/HCPCS: 36415; 71045; 80048; 80053; 83880; 84484; 85025; 87081; 87502; 87503; 87635; 94760; 99285; C9803; G0378; J0696; J1650; J7030; J7512

== ENCOUNTER 2022-11-02 00:45 | Inpatient (IN) | payer MEDICAID ==
[~2022-11-02] VITALS: Ht 190.5 cm; Wt 69.0 kg
[2022-11-02] MEDS ORDERED: acetaminophen 325mg tablet PO ONE (03:05)
[2022-11-02] MEDS ORDERED: ibuprofen tablet 400 MG TABLET PO ONE (03:05)
[2022-11-02 04:06] LABS: BASOPHILS # (AUTO) 0.1 X10'3 (0-0.2); BASOPHILS % (AUTO) 0.5 % (0-1); EOSINOPHILS % (AUTO) 0.4 % (0-6); HEMATOCRIT 40.1 % (42.0-52.0); HEMOGLOBIN 13.9 g/dl (14.0-17.9); LYMPHOCYTES # (AUTO) 0.5 X10'3 (1.1-4.8); LYMPHOCYTES % (AUTO) 3.3 % (21-51); MEAN CORPUSCULAR HEMOGLOBIN 33.1 PG (27.0-31.0); MEAN CORPUSCULAR HGB CONC 34.7 g/dL (33.0-36.5); MEAN CORPUSCULAR VOLUME 95.4 FL (78-98); MEAN PLATELET VOLUME 7.6 FL (7.4-10.4); MONOCYTES # (AUTO) 0.3 X10'3 (0-0.9); MONOCYTES % (AUTO) 2.3 % (2-12); NEUTROPHILS # (AUTO) 12.8 X10'3 (1.8-7.7); NEUTROPHILS % (AUTO) 93.5 % (42-75); PLATELET COUNT 200 X10'3 (140-440); RED CELL DISTRIBUTION WIDTH 13.4 % (11.5-14.5); WHITE BLOOD COUNT 13.6 X10'3 (4.5-11.0)
[2022-11-02 04:18] LABS: ALANINE AMINOTRANSFERASE 20 U/L (12-78); ALBUMIN/GLOBULIN RATIO 0.7 (1.1-1.5); ALKALINE PHOSPHATASE 82 IU/L (46-116); ANION GAP 12 (8-16); BILIRUBIN,TOTAL 0.9 MG/DL (0.1-1.0); BLOOD UREA NITROGEN 19 MG/DL (7-18); BUN/CREATININE RATIO 24.4 (5.4-32.0); CALCIUM 8.8 MG/DL (8.5-10.1); CHLORIDE 101 MMOL/L (99-107); CREATININE 0.78 MG/DL (0.60-1.10); GLUCOSE 88 MG/DL (70-104); SODIUM 135 MMOL/L (135-145); TOTAL CARBON DIOXIDE 22.2 MMOL/L (24-32); TOTAL PROTEIN 7.1 G/DL (6.4-8.2); eGFR > 90 ML/MIN
[2022-11-02 04:19] LABS: ASPARTATE AMINO TRANSFERASE 31 U/L (10-37); POTASSIUM 3.9 MMOL/L (3.5-5.1)
[2022-11-02] MEDS ORDERED: DOXYCYCLINE 100MG CAPSULE PO STA (04:32)
[2022-11-02] MEDS ORDERED: CefTRIAXone/D5W-Rocephin 1gm 50 ML IV ONE (04:35)
--- NOTE | 2022-11-02 05:37 | NUR ---
HOSPITALIST WAS PAGED FOR ADMITION
[2022-11-02] MEDS ORDERED: ondansetron/PF 4mg/2ml inj IV PRN (05:40)
[2022-11-02] MEDS ORDERED: HYDROcodone/acetaminophen 5mg/325mg tablet PO PRN (05:40)
[2022-11-02] MEDS ORDERED: HYDROcodone/acetaminophen 10/325mg tab PO PRN (05:40)
[2022-11-02] MEDS ORDERED: morphine 2 MG/ML inj. syringe IV PRN ×2 (05:40)
[2022-11-02] MEDS ORDERED: acetaminophen 325mg tablet PO PRN ×2 (05:40)
[2022-11-02] MEDS ORDERED: mag hydrox/Alum hydrox/simeth 30ml oral suspension PO PRN (05:40)
[2022-11-02] MEDS ORDERED: magnesium hydroxide 30ml (MOM) UD suspension PO PRN (05:40)
[2022-11-02] MEDS ORDERED: normal saline 1000ml 1,000 ML IV ONE (05:50)
--- NOTE | 2022-11-02 07:15 | NUR ---
Pt walked to the bathroom, Pt back on the monitor, VS are stable no distress noted at this time. Pt stated that he has been sleeping well and had no SOB when walking to the bathroom
[2022-11-02] MEDS: normal saline 1000ml 1,000 ML IV SCH ×2 (07:16→16:38)
[2022-11-02] MEDS: docusate sod 100mg capsule PO SCH ×2 (07:57→20:00)
[2022-11-02] MEDS: enoxaparin 40mg/0.4ml syringe SUBCUT SCH (08:09)
[2022-11-02] MEDS ORDERED: magnesium 4gm in 100ml NS 100 ML IV PRN (08:20)
[2022-11-02] MEDS ORDERED: ipratropium/albuterol 3ml nebule NEB PRN (08:20)
[2022-11-02] MEDS ORDERED: potassium Cl 20 mEq SR tablet PO PRN ×2 (08:20)
[2022-11-02] MEDS ORDERED: potassium Cl 40MEQ/1/2NS 520ml 520 ML IV PRN (08:20)
[2022-11-02] MEDS ORDERED: magnesium Cl slow-release 64mg tablet PO PRN (08:20)
[2022-11-02] MEDS ORDERED: NO HOME MEDS (17:15)
--- NOTE | 2022-11-02 17:18 | NUR ---
MarcellaA Kierra Ray: ABBY patient has new RT orders. thank you! Addendum: 11/02/22 at 1718 by Susi Caban RN Amended: Links added.
[2022-11-02] MEDS ORDERED: FLU VACC QS2022-23(6MOS UP)/PF 60 MCG/0.5 ML SYRINGE IMVAC ONE (17:50)
[2022-11-02] MEDS ORDERED: pneumococcal 23-VAL P-sac vacc 25 mcg/0.5ml vial IMVAC ONE (17:50)
--- NOTE | 2022-11-02 18:26 | NUR ---
Problems reprioritized. Patient report given, questions answered & plan of care reviewed with KAELYN jang.
[2022-11-02 18:30] VITALS: BP 112/72
--- NOTE | 2022-11-02 18:30 | NUR ---
Patient in room [facility] 350. I have received report from KAELYN Goldman and had the opportunity to ask questions and assume patient care. Pt sitting up in bed eating dinner. Addendum: 11/02/22 at 2024 by Claus Lennon RN Amended: Links added.
[2022-11-02] MEDS: K and/or MAG REPLACEMENT MC SCH (20:00)
[2022-11-02] MEDS: levoFLOXACIN-Levaquin 750MG/D5 150 ML IV SCH (21:18)
--- NOTE | 2022-11-02 21:51 | NUR ---
pt states he has had water diarrhea for several day more than 3 days. nausea no pain, has not been on abx. pt does not know color. will obtain stool sample Addendum: 11/02/22 at 2210 by Claus Lennon RN Amended: Links added.
[2022-11-02 22:30] VITALS: BP 83/54
[2022-11-02 22:45] VITALS: BP 98/54
--- NOTE | 2022-11-02 23:45 | NUR ---
pt pulled iv out, refuses to have new iv placed. Addendum: 11/03/22 at 0156 by Claus Lennon RN Amended: Links added.
--- NOTE | 2022-11-03 00:28 | NUR ---
Refuses to have iv restarted at this time. Addendum: 11/03/22 at 0028 by Claus Lennon RN Amended: Links added.
[2022-11-03] MEDS: normal saline 1000ml 1,000 ML IV SCH ×3 (01:40→20:08)
--- NOTE | 2022-11-03 01:54 | NUR ---
p[t is aggitated, amb to bathroom had stool missed had, tele off pt refuses to have placed back on, refuses iv. Addendum: 11/03/22 at 0154 by Claus Lennon RN Amended: Links added.
--- NOTE | 2022-11-03 02:12 | NUR ---
PT HAS REFUSED VACCINES THIS EVENING. Addendum: 11/03/22 at 0212 by Claus Lennon RN Amended: Links added.
--- NOTE | 2022-11-03 04:31 | NUR ---
attempted iv x2 unable to start. first one blew, 2nd one pt c/.o pain, refuses iv in left arm. 2nd RN to attempt. Addendum: 11/03/22 at 0432 by Claus Lennon RN Amended: Links added.
--- NOTE | 2022-11-03 06:24 | NUR ---
Problems reprioritized. Patient report given, questions answered & plan of care reviewed with KAELYN Jeffrey. Addendum: 11/03/22 at 0624 by Claus Lennon RN Amended: Links added.
[2022-11-03 06:32] LABS: BASOPHILS % (AUTO) 0.9 % (0-1); EOSINOPHILS # (AUTO) 0.2 X10'3 (0-0.9); EOSINOPHILS % (AUTO) 4.7 % (0-6); HEMOGLOBIN 13.3 g/dl (14.0-17.9); LYMPHOCYTES # (AUTO) 0.8 X10'3 (1.1-4.8); LYMPHOCYTES % (AUTO) 15.3 % (21-51); MEAN CORPUSCULAR HEMOGLOBIN 33.6 PG (27.0-31.0); MEAN CORPUSCULAR HGB CONC 34.1 g/dL (33.0-36.5); MEAN CORPUSCULAR VOLUME 98.4 FL (78-98); MEAN PLATELET VOLUME 7.6 FL (7.4-10.4); MONOCYTES # (AUTO) 0.5 X10'3 (0-0.9); MONOCYTES % (AUTO) 9.2 % (2-12); NEUTROPHILS # (AUTO) 3.6 X10'3 (1.8-7.7); NEUTROPHILS % (AUTO) 69.9 % (42-75); PLATELET COUNT 181 X10'3 (140-440); RED BLOOD COUNT 3.97 X10'6 (4.70-6.10); RED CELL DISTRIBUTION WIDTH 13.1 % (11.5-14.5); WHITE BLOOD COUNT 5.1 X10'3 (4.5-11.0)
--- NOTE | 2022-11-03 06:43 | NUR ---
Patient in room [facility] 350. I have received report from Claus ART and had the opportunity to ask questions and assume patient care.
[2022-11-03 07:00] VITALS: BP 99/70
[2022-11-03 07:14] LABS: ALBUMIN 2.4 G/DL (3.4-5.0); BLOOD UREA NITROGEN 18 MG/DL (7-18); BUN/CREATININE RATIO 23.4 (5.4-32.0); CALCIUM 8.3 MG/DL (8.5-10.1); CREATININE 0.77 MG/DL (0.60-1.10); GLUCOSE 108 MG/DL (70-104); MAGNESIUM 1.8 MG/DL (1.5-2.4); PHOSPHORUS 2.5 MG/DL (2.3-4.5); TOTAL CARBON DIOXIDE 22.8 MMOL/L (24-32); eGFR > 90 ML/MIN
[2022-11-03 07:54] LABS: CHLORIDE 106 MMOL/L (99-107)
[2022-11-03] MEDS: enoxaparin 40mg/0.4ml syringe SUBCUT SCH (08:00)
[2022-11-03] MEDS: docusate sod 100mg capsule PO SCH ×2 (08:00→20:07)
[2022-11-03] MEDS: K and/or MAG REPLACEMENT MC SCH ×2 (08:00→19:48)
[2022-11-03 10:41] LABS: ANION GAP 14 (8-16); POTASSIUM 4.2 MMOL/L (3.5-5.1); SODIUM 143 MMOL/L (135-145)
[2022-11-03 12:26] VITALS: BP 100/66
--- NOTE | 2022-11-03 15:08 | NUR ---
Pt was awoken by lab about 1435. Pt became agitated and then threatened to leave ama. Dr. Mujica was notified. Shortly after 1500 the pt stated he would stay and apologized for taking the tele off and threatening to leave ama. Pt said he would stay afterall and Dr Mujica was again notified that pt will stay, via [employer] Message: 350a Ray: Pt changed his mind and will stay now. Maybe we need the ETOH protocol, or an ativan order? Thanks. Estelle .
--- NOTE | 2022-11-03 18:17 | NUR ---
Problems reprioritized. Patient report given, questions answered & plan of care reviewed with Claus ART.
[2022-11-03 18:30] VITALS: BP 111/64
--- NOTE | 2022-11-03 18:30 | NUR ---
Patient in room [facility] 350. I have received report from KAELYN Jeffrey and had the opportunity to ask questions and assume patient care. Addendum: 11/03/22 at 1902 by Claus Lennon RN Amended: Links added.
[2022-11-03] MEDS ORDERED: LORazepam 2 mg/ml vial IV PRN (20:45)
[2022-11-03] MEDS ORDERED: haloperidol lactate 5mg/ml inj IM PRN (20:45)
[2022-11-03] MEDS ORDERED: haloperidol 5mg tablet PO PRN (20:45)
[2022-11-03] MEDS: levoFLOXACIN-Levaquin 750MG/D5 150 ML IV SCH (20:58)
[2022-11-03] MEDS: thiamine 100mg/ml 2ml inj. IV SCH (21:16)
[2022-11-03] MEDS: LORazepam 1 MG tablet PO PRN (21:17)
[2022-11-03] MEDS: nicotine 14mg patch - 24hr TD SCH (21:18)
[2022-11-03 22:00] VITALS: BP 112/69
[2022-11-04] MEDS: normal saline 1000ml 1,000 ML IV SCH ×2 (05:16→17:40)
[2022-11-04 06:00] VITALS: BP 105/72
[2022-11-04 06:27] LABS: BASOPHILS % (AUTO) 0.7 % (0-1); EOSINOPHILS # (AUTO) 0.3 X10'3 (0-0.9); EOSINOPHILS % (AUTO) 5.2 % (0-6); HEMATOCRIT 39.1 % (42.0-52.0); HEMOGLOBIN 13.4 g/dl (14.0-17.9); LYMPHOCYTES # (AUTO) 0.9 X10'3 (1.1-4.8); MEAN CORPUSCULAR HEMOGLOBIN 33.1 PG (27.0-31.0); MEAN CORPUSCULAR HGB CONC 34.4 g/dL (33.0-36.5); MEAN CORPUSCULAR VOLUME 96.2 FL (78-98); MEAN PLATELET VOLUME 7.3 FL (7.4-10.4); MONOCYTES # (AUTO) 0.5 X10'3 (0-0.9); MONOCYTES % (AUTO) 9.7 % (2-12); NEUTROPHILS # (AUTO) 3.4 X10'3 (1.8-7.7); NEUTROPHILS % (AUTO) 67.4 % (42-75); PLATELET COUNT 197 X10'3 (140-440); RED BLOOD COUNT 4.06 X10'6 (4.70-6.10); RED CELL DISTRIBUTION WIDTH 13.1 % (11.5-14.5); WHITE BLOOD COUNT 5.1 X10'3 (4.5-11.0)
[2022-11-04 06:34] LABS: ALBUMIN 2.5 G/DL (3.4-5.0); ANION GAP 10 (8-16); BLOOD UREA NITROGEN 13 MG/DL (7-18); BUN/CREATININE RATIO 19.7 (5.4-32.0); CALCIUM 8.3 MG/DL (8.5-10.1); CHLORIDE 106 MMOL/L (99-107); CREATININE 0.66 MG/DL (0.60-1.10); GLUCOSE 101 MG/DL (70-104); LIPASE 146 U/L (73-393); MAGNESIUM 1.5 MG/DL (1.5-2.4); POTASSIUM 3.9 MMOL/L (3.5-5.1); SODIUM 139 MMOL/L (135-145); TOTAL CARBON DIOXIDE 22.6 MMOL/L (24-32); eGFR > 90 ML/MIN
--- NOTE | 2022-11-04 06:37 | NUR ---
Problems reprioritized. Patient report given, questions answered & plan of care reviewed with KAELYN Franklin. Addendum: 11/04/22 at 0637 by Claus Lennon RN Amended: Links added.
[2022-11-04] MEDS: docusate sod 100mg capsule PO SCH ×2 (08:00→20:00)
[2022-11-04] MEDS ORDERED: folic acid 1mg/0.2ml inj IV SCH (08:00)
[2022-11-04] MEDS: K and/or MAG REPLACEMENT MC SCH ×2 (08:00→20:00)
[2022-11-04] MEDS: nicotine 14mg patch - 24hr TD SCH (08:13)
[2022-11-04] MEDS: multivitamins, therapeutics tablet PO SCH (08:14)
[2022-11-04] MEDS: thiamine 100mg/ml 2ml inj. IV SCH ×3 (08:14→21:00)
[2022-11-04] MEDS: enoxaparin 40mg/0.4ml syringe SUBCUT SCH (08:16)
[2022-11-04 10:00] VITALS: BP_SYST 112; BP_SYST 133; BP_DIAS 43; BP_DIAS 68
--- NOTE | 2022-11-04 10:19 | NUR ---
RN expressed concern regarding pt's nutritional status. Current wt 69kg though non-scaled. It appears that pt is mostly around 65kg on previous visits dating back to 2009 suggesting that he maintains this wt. Currently on Regular diet eating 100% of meals meeting est needs. Pt requesting double protein WB; d/w dietary Addendum: 11/04/22 at [address] Amended: Links added.
[2022-11-04] MEDS ORDERED: ALBU6.7H14 INH (13:21)
[2022-11-04] MEDS ORDERED: FOLI1TAB27 PO (13:21)
[2022-11-04] MEDS ORDERED: THIA50TA10 PO (13:21)
[2022-11-04] MEDS ORDERED: LACT1CAP55 PO (13:21)
[2022-11-04] MEDS ORDERED: LEVO750T68 PO (13:21)
[2022-11-04] MEDS ORDERED: MULT-1085 PO (13:21)
--- NOTE | 2022-11-04 14:28 | NUR ---
Per Dr Mujica request would like case management to give resource information to patient. semd patient with sack lunch and have sr. social media & mobile manager to a follow up with patient after discharge. Contacted Deisy the major case detective and she is aware will get information for patient. Primary RN Noemi crenshaw.
--- NOTE | 2022-11-04 14:39 | NUR ---
Paged Dr Mujica regarding patients discharge. Patient wants to go to inpatient drug rehab. Patient does not have a cell phone or a place he is staying so child protective services social worker can contact him after discharge. Spoke with Deisy the piano case and bench assembler and she does not have any information for drug rehab, that needs to be done through child protective services social worker. Awaiting call back from Dr Mujica.
--- NOTE | 2022-11-04 16:00 | NUR ---
Per Dr Mujica patient will stay until tomorrow for Social Service consult
--- NOTE | 2022-11-04 18:10 | NUR ---
Report to Addie ART
[2022-11-04 18:30] VITALS: BP 107/61
--- NOTE | 2022-11-04 18:30 | NUR ---
Patient in room [facility] 350. I have received report from KAELYN Franklin and had the opportunity to ask questions and assume patient care. Addendum: 11/05/22 at 0309 by Claus Lennon RN Amended: Links added.
[2022-11-04] MEDS: LORazepam 1 MG tablet PO PRN (20:41)
[2022-11-04] MEDS: levoFLOXACIN-Levaquin 750MG/D5 150 ML IV SCH (20:41)
--- NOTE | 2022-11-04 20:47 | NUR ---
refused thiamine, d/t burning message sent to pharmacy to change to po Addendum: 11/04/22 at 2046 by Claus Lennon RN Amended: Links added.
[2022-11-04 22:00] VITALS: BP 97/57
[2022-11-05] MEDS: normal saline 1000ml 1,000 ML IV SCH (03:40)
[2022-11-05 06:00] VITALS: BP 117/69
[2022-11-05 06:20] LABS: BASOPHILS # (AUTO) 0.1 X10'3 (0-0.2); BASOPHILS % (AUTO) 0.8 % (0-1); EOSINOPHILS # (AUTO) 0.3 X10'3 (0-0.9); EOSINOPHILS % (AUTO) 4.5 % (0-6); HEMATOCRIT 42.7 % (42.0-52.0); HEMOGLOBIN 14.6 g/dl (14.0-17.9); LYMPHOCYTES # (AUTO) 1.3 X10'3 (1.1-4.8); LYMPHOCYTES % (AUTO) 19.4 % (21-51); MEAN CORPUSCULAR HEMOGLOBIN 32.9 PG (27.0-31.0); MEAN CORPUSCULAR HGB CONC 34.2 g/dL (33.0-36.5); MEAN CORPUSCULAR VOLUME 96.1 FL (78-98); MEAN PLATELET VOLUME 7.5 FL (7.4-10.4); MONOCYTES # (AUTO) 0.5 X10'3 (0-0.9); MONOCYTES % (AUTO) 8.1 % (2-12); NEUTROPHILS # (AUTO) 4.4 X10'3 (1.8-7.7); NEUTROPHILS % (AUTO) 67.2 % (42-75); PLATELET COUNT 245 X10'3 (140-440); RED BLOOD COUNT 4.45 X10'6 (4.70-6.10); RED CELL DISTRIBUTION WIDTH 13.2 % (11.5-14.5); WHITE BLOOD COUNT 6.6 X10'3 (4.5-11.0)
--- NOTE | 2022-11-05 06:26 | NUR ---
Problems reprioritized. Patient report given, questions answered & plan of care reviewed with KAELYN Franklin. Addendum: 11/05/22 at 0627 by Claus Lennon RN Amended: Links added.
[2022-11-05 06:43] LABS: ALBUMIN 2.7 G/DL (3.4-5.0); ANION GAP 8 (8-16); BLOOD UREA NITROGEN 15 MG/DL (7-18); BUN/CREATININE RATIO 17.2 (5.4-32.0); CHLORIDE 105 MMOL/L (99-107); CREATININE 0.87 MG/DL (0.60-1.10); GLUCOSE 99 MG/DL (70-104); LIPASE 175 U/L (73-393); MAGNESIUM 1.6 MG/DL (1.5-2.4); PHOSPHORUS 3.5 MG/DL (2.3-4.5); POTASSIUM 4.8 MMOL/L (3.5-5.1); SODIUM 138 MMOL/L (135-145); eGFR 90 ML/MIN
[2022-11-05] MEDS: K and/or MAG REPLACEMENT MC SCH (08:00)
[2022-11-05] MEDS: thiamine 100mg tablet PO SCH ×2 (08:34→12:23)
[2022-11-05] MEDS: docusate sod 100mg capsule PO SCH (08:34)
[2022-11-05] MEDS: multivitamins, therapeutics tablet PO SCH (08:34)
[2022-11-05] MEDS: enoxaparin 40mg/0.4ml syringe SUBCUT SCH (08:35)
[2022-11-05] MEDS: nicotine 14mg patch - 24hr TD SCH (08:40)
[2022-11-05] MEDS ORDERED: folic acid 1mg tablet PO SCH (09:25)
[2022-11-07] MEDS ORDERED: thiamine 100mg tablet PO SCH (08:00)
== END 2022-11-05 12:31 | disposition home or self-care (01) | DRG 139 ==
LOC: ER 00:46 → ED HOLD 05:42 → SUR 3N 15:30
PROVIDERS: ADMIT Internal Medicine; ATTEND Family Medicine
PROC: 3E02340 Introduction of Influenza Vaccine into Muscle, Percutaneous Approach (ICD-10-PCS; principal; 2022-11-02)
PROC: 3E0234Z Introduction of Serum, Toxoid and Vaccine into Muscle, Percutaneous Approach (ICD-10-PCS; 2022-11-02)
DX: J18.9 Pneumonia, unspecified organism (principal); J96.90 Respiratory failure, unspecified, unspecified whether with hypoxia or hypercapnia; F17.290 Nicotine dependence, other tobacco product, uncomplicated; Z20.822 Contact with and (suspected) exposure to COVID-19; F12.90 Cannabis use, unspecified, uncomplicated; F10.10 Alcohol abuse, uncomplicated; Z66 Do not resuscitate; F15.20 Other stimulant dependence, uncomplicated; Z60.2 Problems related to living alone; G89.29 Other chronic pain; J44.0 Chronic obstructive pulmonary disease with (acute) lower respiratory infection; Z59.00 Homelessness unspecified; Z88.2 Allergy status to sulfonamides; Z56.0 Unemployment, unspecified; Z23 Encounter for immunization; Z88.8 Allergy status to other drugs, medicaments and biological substances; Z90.49 Acquired absence of other specified parts of digestive tract; Z71.6 Tobacco abuse counseling; Z71.51 Drug abuse counseling and surveillance of drug abuser
CPT/HCPCS: 36415; 71045; 80048; 80053; 83605; 83690; 83735; 83880; 84100; 84145; 85025; 85610; 87040; 87081; 87324; 87449; 87502; 87503; 87635; 90686; 90732; 93005; 94760; 96365; 97116; 97161; 97530; 99291; C9803; G0378; J0696; J1650; J1956; J3411; J3490; J7030

== ENCOUNTER 2022-12-02 09:52 | Emergency (ER) | payer MEDICAID ==
[~2022-12-02] VITALS: Ht 195.6 cm; Wt 70.0 kg
[~2022-12-02 09:52] MED LIST changes: +ALBU6.7H14 INH; +FOLI1TAB27 PO; +LACT1CAP55 PO; +LEVO750T68 PO; +MULT-1085 PO; -NO HOME MEDS; +THIA50TA10 PO
[2022-12-02 10:07] VITALS: BP 119/73
[2022-12-02] MEDS ORDERED: acetaminophen 325mg tablet PO ONE (11:40)
[2022-12-02] MEDS ORDERED: ondansetron 4mg rapidly disintigrating tab PO ONE (11:40)
[2022-12-02] MEDS ORDERED: PRED20TA PO (12:08)
[2022-12-02] MEDS ORDERED: GUAI600T45 PO (12:08)
[2022-12-02] MEDS ORDERED: ALBU18HF2 INH (12:08)
== END 2022-12-02 12:28 | disposition home or self-care (01) ==
LOC: ER 09:52
DX: J44.9 Chronic obstructive pulmonary disease, unspecified (principal); Z20.822 Contact with and (suspected) exposure to COVID-19; J41.0 Simple chronic bronchitis; F12.10 Cannabis abuse, uncomplicated; G89.29 Other chronic pain; Z59.00 Homelessness unspecified; Z56.0 Unemployment, unspecified; Z88.2 Allergy status to sulfonamides; Z79.899 Other long term (current) drug therapy
CPT/HCPCS: 71045; 87502; 87503; 87635; 99284; C9803

== ENCOUNTER 2023-06-03 21:44 | Emergency (ER) | payer MEDICAID ==
[~2023-06-03] VITALS: Ht 195.6 cm; Wt 54.5 kg
[~2023-06-03 21:44] MED LIST changes: +ALBU18HF2 INH; +GUAI600T45 PO; -LEVO750T68 PO
[2023-06-04] MEDS ORDERED: LIDOcaine 1% W/epiNEPHrine 1:100,000 20ml vial IJ ONE (02:15)
[2023-06-04] MEDS ORDERED: DOXY-1 PO (03:13)
[2023-06-04] MEDS ORDERED: CEPH-585 PO (03:13)
== END 2023-06-04 03:26 | disposition home or self-care (01) ==
LOC: ER 21:44
DX: L02.414 Cutaneous abscess of left upper limb (principal); J44.9 Chronic obstructive pulmonary disease, unspecified; F12.90 Cannabis use, unspecified, uncomplicated; Z88.2 Allergy status to sulfonamides; Z88.8 Allergy status to other drugs, medicaments and biological substances; Z59.00 Homelessness unspecified; Z56.0 Unemployment, unspecified
CPT/HCPCS: 10060; 99283; A6258; A6449

== ENCOUNTER 2025-02-14 11:42 | Inpatient (IN) | payer OTHER ==
[~2025-02-14] VITALS: Ht 195.6 cm; Wt 54.0 kg
[2025-02-14 13:20] LABS: BASOPHILS # (AUTO) 0.1 X10'3 (0-0.2); BASOPHILS % (AUTO) 0.4 % (0-1); EOSINOPHILS % (AUTO) 0.2 % (0-6); HEMATOCRIT 43.5 % (42.0-52.0); HEMOGLOBIN 14.5 g/dl (14.0-17.9); LYMPHOCYTES # (AUTO) 1.2 X10'3 (1.1-4.8); LYMPHOCYTES % (AUTO) 8.2 % (21-51); MEAN CORPUSCULAR HEMOGLOBIN 30.1 PG (27.0-31.0); MEAN CORPUSCULAR HGB CONC 33.3 g/dL (33.0-36.5); MEAN CORPUSCULAR VOLUME 90.6 FL (78-98); MEAN PLATELET VOLUME 7.6 FL (7.4-10.4); MONOCYTES # (AUTO) 0.9 X10'3 (0-0.9); MONOCYTES % (AUTO) 5.9 % (2-12); NEUTROPHILS # (AUTO) 12.9 X10'3 (1.8-7.7); NEUTROPHILS % (AUTO) 85.3 % (42-75); PLATELET COUNT 441 X10'3 (140-440); RED CELL DISTRIBUTION WIDTH 15.2 % (11.5-14.5); WHITE BLOOD COUNT 15.2 X10'3 (4.5-11.0)
[2025-02-14 13:39] LABS: ALBUMIN 2.9 G/DL (3.4-5.0); ANION GAP 12 (8-16); BLOOD UREA NITROGEN 8 MG/DL (7-18); CALCIUM 8.8 MG/DL (8.5-10.1); CHLORIDE 98 MMOL/L (99-107); CREATININE 0.73 MG/DL (0.60-1.10); GLUCOSE 97 MG/DL (70-104); POTASSIUM 3.9 MMOL/L (3.5-5.1); PRO BRAIN NATRIURETIC PEPTIDE 167 PG/ML (0-125); SODIUM 136 MMOL/L (135-145); eCRCL 80 ML/MIN; eGFR > 90 ML/MIN
[2025-02-14 13:46] VITALS: PULSE 104; RESP 22; O2SAT 92
[2025-02-14] MEDS: ipratropium/albuterol 3ml nebule NEB ONE (13:46)
[2025-02-14 13:51] LABS: MAGNESIUM 2.1 MG/DL (1.5-2.4)
[2025-02-14 13:52] VITALS: PULSE 98; RESP 22; O2SAT 93
[2025-02-14] MEDS: methylPREDNISolone sod succ 125mg/2ml vial IV ONE (14:07)
[2025-02-14] MEDS: normal saline 1000ML IV soln IVB ONE (14:08)
[2025-02-14] MEDS: CefTRIAXone/D5W-Rocephin 1gm 50 ML IV ONE (14:09)
[2025-02-14] MEDS ORDERED: magnesium hydroxide 30ml (MOM) UD suspension PO PRN (17:20)
[2025-02-14] MEDS ORDERED: potassium Cl 20 mEq SR tablet PO PRN ×2 (17:20)
[2025-02-14] MEDS ORDERED: magnesium sulf-water 4G/100mL 100 ML IV PRN (17:20)
[2025-02-14] MEDS ORDERED: mag hydrox/Alum hydrox/simeth 30ml oral suspension PO PRN (17:20)
[2025-02-14] MEDS ORDERED: morphine 2 MG/ML inj. syringe IV PRN ×2 (17:20)
[2025-02-14] MEDS ORDERED: ondansetron 4mg rapidly disintigrating tab PO PRN (17:20)
[2025-02-14] MEDS ORDERED: potassium Cl 40MEQ/1/2NS 520ml 520 ML IV PRN (17:20)
[2025-02-14] MEDS ORDERED: acetaminophen 325mg tablet PO PRN (17:20)
[2025-02-14] MEDS ORDERED: magnesium sulf-water 2g/50mL 50 ML IV PRN (17:20)
[2025-02-14] MEDS ORDERED: ondansetron/PF 4mg/2ml inj IV PRN (17:20)
[2025-02-14] MEDS: PERFLUTREN PROTEIN-A MICROSPHR (Optison) 0.22 MG/ML 3ML VIAL IV ONE (17:20)
[2025-02-14] MEDS: azithromycin/NS 500mg/250ml 250 ML IV ONE (18:25)
[2025-02-14] MEDS: normal saline 1000ml 1,000 ML IV ONE ×2 (18:25→20:52)
[2025-02-14] MEDS: nicotine 21mg patch - 24 hr TD ONE (18:48)
[2025-02-14] MEDS ORDERED: NO HOME MEDS (18:55)
[2025-02-14 19:29] LABS: D-DIMER 0.77 MG/L FEU (0-0.50)
[2025-02-14] MEDS ORDERED: midodrine 5mg tablet PO PRN (19:50)
[2025-02-14] MEDS ORDERED: iohexol 350MG/ML 100ml bottle IV ONE (19:53)
[2025-02-14] MEDS ORDERED: methylPREDNISolone sod succ 125mg/2ml vial IV SCH (20:00)
[2025-02-14] MEDS: docusate sod 100mg capsule PO SCH (20:00)
[2025-02-14] MEDS: K and/or MAG REPLACEMENT MC SCH (20:18)
[2025-02-14] MEDS: heparin, porcine 5000 units/ml vial SQ SCH (20:22)
[2025-02-14] MEDS: methylPREDNISolone sod succ 125mg/2ml vial IV SCH (20:25)
[2025-02-14 20:54] VITALS: PULSE 81; RESP 18; O2SAT 95
[2025-02-14 22:00] VITALS: BP 108/77; PULSE 81; RESP 16; TEMP 96.2; O2SAT 95
[2025-02-15] VITALS (10 sets, daily range): BP systolic 93–115; BP diastolic 57–62; PULSE 84–109; RESP 16–25; TEMP 97.7–98.9; O2SAT 91–98
[2025-02-15] MEDS: normal saline 1000ml 1,000 ML IV SCH (05:00)
[2025-02-15 06:42] LABS: BASOPHILS % (AUTO) 0.4 % (0-1); EOSINOPHILS % (AUTO) 0 % (0-6); HEMATOCRIT 46.4 % (42.0-52.0); HEMOGLOBIN 15.2 g/dl (14.0-17.9); LYMPHOCYTES # (AUTO) 0.5 X10'3 (1.1-4.8); LYMPHOCYTES % (AUTO) 8.9 % (21-51); MEAN CORPUSCULAR HGB CONC 32.7 g/dL (33.0-36.5); MEAN CORPUSCULAR VOLUME 91.6 FL (78-98); MEAN PLATELET VOLUME 7.9 FL (7.4-10.4); MONOCYTES # (AUTO) 0.2 X10'3 (0-0.9); MONOCYTES % (AUTO) 3.5 % (2-12); NEUTROPHILS # (AUTO) 4.5 X10'3 (1.8-7.7); NEUTROPHILS % (AUTO) 87.2 % (42-75); PLATELET COUNT 345 X10'3 (140-440); RED BLOOD COUNT 5.06 X10'6 (4.70-6.10); RED CELL DISTRIBUTION WIDTH 15.5 % (11.5-14.5); WHITE BLOOD COUNT 5.2 X10'3 (4.5-11.0)
[2025-02-15 07:27] LABS: ALANINE AMINOTRANSFERASE 13 U/L (12-78); ALBUMIN 2.5 G/DL (3.4-5.0); ALBUMIN/GLOBULIN RATIO 0.5 (1.1-1.5); ALKALINE PHOSPHATASE 86 IU/L (46-116); ANION GAP 9 (8-16); ASPARTATE AMINO TRANSFERASE 14 U/L (10-37); BILIRUBIN,TOTAL 0.3 MG/DL (0.1-1.0); BLOOD UREA NITROGEN 10 MG/DL (7-18); BUN/CREATININE RATIO 12.7 (10.0-20.0); CALCIUM 8.8 MG/DL (8.5-10.1); CHLORIDE 105 MMOL/L (99-107); CREATININE 0.79 MG/DL (0.60-1.10); GLUCOSE 166 MG/DL (70-104); MAGNESIUM 2.2 MG/DL (1.5-2.4); POTASSIUM 4.3 MMOL/L (3.5-5.1); SODIUM 140 MMOL/L (135-145); TOTAL CARBON DIOXIDE 26.1 MMOL/L (24-32); TOTAL PROTEIN 7.5 G/DL (6.4-8.2); eCRCL 74 ML/MIN; eGFR > 90 ML/MIN
[2025-02-15] MEDS: lactose-reduced food (Ensure Enlive) - 237ml bottle PO SCH (13:00)
[2025-02-15] MEDS: albuterol 2.5 MG/3 ML nebule NEB PRN (13:09)
[2025-02-15] MEDS: nicotine 21mg patch - 24 hr TD SCH (14:16)
[2025-02-15] MEDS: CefTRIAXone 2gm/D5W 50ml BAG 50 ML IV SCH (14:50)
[2025-02-15] MEDS: azithromycin/NS 500mg/250ml 250 ML IV SCH (15:43)
[2025-02-15] MEDS: ipratropium/albuterol 3ml nebule NEB PRN (16:05)
[2025-02-16] VITALS (8 sets, daily range): BP systolic 113–119; BP diastolic 65–77; PULSE 82–99; RESP 16–22; TEMP 96.9–97.5; O2SAT 90–99
[2025-02-16 06:26] LABS: ALANINE AMINOTRANSFERASE 9 U/L (12-78); ALBUMIN 2.2 G/DL (3.4-5.0); ALBUMIN/GLOBULIN RATIO 0.5 (1.1-1.5); ALKALINE PHOSPHATASE 84 IU/L (46-116); ANION GAP 10 (8-16); ASPARTATE AMINO TRANSFERASE 17 U/L (10-37); BILIRUBIN,TOTAL 0.1 MG/DL (0.1-1.0); BLOOD UREA NITROGEN 18 MG/DL (7-18); CALCIUM 8.5 MG/DL (8.5-10.1); CHLORIDE 107 MMOL/L (99-107); CREATININE 0.62 MG/DL (0.60-1.10); GLUCOSE 112 MG/DL (70-104); MAGNESIUM 1.9 MG/DL (1.5-2.4); POTASSIUM 4.9 MMOL/L (3.5-5.1); SODIUM 138 MMOL/L (135-145); TOTAL CARBON DIOXIDE 21.5 MMOL/L (24-32); TOTAL PROTEIN 6.5 G/DL (6.4-8.2); eCRCL 94 ML/MIN; eGFR > 90 ML/MIN
[2025-02-16 08:28] LABS: BASOPHILS # (AUTO) 0.1 X10'3 (0-0.2); BASOPHILS % (AUTO) 0.3 % (0-1); EOSINOPHILS % (AUTO) 0 % (0-6); HEMATOCRIT 38.4 % (42.0-52.0); HEMOGLOBIN 12.7 g/dl (14.0-17.9); LYMPHOCYTES # (AUTO) 0.6 X10'3 (1.1-4.8); LYMPHOCYTES % (AUTO) 3.2 % (21-51); MEAN CORPUSCULAR HEMOGLOBIN 30.6 PG (27.0-31.0); MEAN CORPUSCULAR VOLUME 92.7 FL (78-98); MEAN PLATELET VOLUME 7.3 FL (7.4-10.4); MONOCYTES # (AUTO) 0.4 X10'3 (0-0.9); NEUTROPHILS # (AUTO) 18.6 X10'3 (1.8-7.7); NEUTROPHILS % (AUTO) 94.5 % (42-75); PLATELET COUNT 312 X10'3 (140-440); RED BLOOD COUNT 4.14 X10'6 (4.70-6.10); RED CELL DISTRIBUTION WIDTH 15.2 % (11.5-14.5); WHITE BLOOD COUNT 19.7 X10'3 (4.5-11.0)
[2025-02-16] MEDS ORDERED: midodrine 5mg tablet PO PRN (08:45)
[2025-02-16] MEDS: ipratropium/albuterol 3ml nebule NEB SCH (09:33)
[2025-02-16] MEDS ORDERED: PRED20TA PO (13:07)
[2025-02-16] MEDS ORDERED: LEVO-65 PO (13:07)
[2025-02-16] MEDS ORDERED: ALBU18HF2 IH (13:07)
[2025-02-16] MEDS ORDERED: NICO-687 TD (13:07)
== END 2025-02-16 15:00 | disposition home or self-care (01) | DRG 871 ==
LOC: ER 11:42 → ED HOLD 17:18 → ORTHO 4S 21:53
PROVIDERS: ADMIT Nurse Practitioner Family; ATTEND Nurse Practitioner Family
PROC: B32T1ZZ Computerized Tomography (CT Scan) of Left Pulmonary Artery using Low Osmolar Contrast (ICD-10-PCS; principal; 2025-02-14)
PROC: B3201ZZ Computerized Tomography (CT Scan) of Thoracic Aorta using Low Osmolar Contrast (ICD-10-PCS; 2025-02-14)
PROC: B32S1ZZ Computerized Tomography (CT Scan) of Right Pulmonary Artery using Low Osmolar Contrast (ICD-10-PCS; 2025-02-14)
DX: A41.9 Sepsis, unspecified organism (principal); J18.9 Pneumonia, unspecified organism; J44.0 Chronic obstructive pulmonary disease with (acute) lower respiratory infection; Z59.00 Homelessness unspecified; Z66 Do not resuscitate; F17.210 Nicotine dependence, cigarettes, uncomplicated; F15.10 Other stimulant abuse, uncomplicated; Z88.2 Allergy status to sulfonamides; Z79.899 Other long term (current) drug therapy; Z90.49 Acquired absence of other specified parts of digestive tract
CPT/HCPCS: 36415; 71046; 71275; 80048; 80053; 83605; 83735; 83880; 84145; 85025; 85379; 87040; 87081; 87502; 87503; 93005; 93306; 93970; 94640; 94760; 96361; 96365; 96367; 96372; 96375; 96376; 99285; A6258; G0378; J0456; J0696; J1644; J2919; J7030; Q9967

== ENCOUNTER 2025-07-05 15:24 | Inpatient (IN) | payer MEDICAID ==
[~2025-07-05] VITALS: Ht 190.5 cm; Wt 52.3 kg
[~2025-07-05 15:24] MED LIST changes: +ALBU18HF2 IH; -ALBU18HF2 INH; -ALBU6.7H14 INH; -FOLI1TAB27 PO; -GUAI600T45 PO; -LACT1CAP55 PO; -MULT-1085 PO; +NICO-687 TD; -THIA50TA10 PO
--- NOTE | 2025-07-05 17:56 | Physician Documentation ---
History of Present Illness ~ Chief Complaint: Wound Stated Complaint: RLL LEG PAIN Time Seen by MD: 18:02 Primary Medical Doctor: none Mode of Arrival: EMS HPI 64-year-old male presents to the ED with 3-4 days of increased pain and swelling in his left lower extremity says he has developed these sores incrementally is complaining of the pain and swelling at this time. Denies any fevers ,reports being homeless. History as above. Reports no traumas. Tetanus within 5 years?: Yes Medication Reconciliation Allergies: Coded Allergies: Sulfa (Sulfonamide Antibiotics) (Verified Allergy, Unknown, 07/05/25) Uncoded Allergies: PSYCH MEDS (Allergy, Unknown, MAKES HIM FEEL WEIRD, 06/19/17) Discontinued Medications Albuterol Sulfate (Ventolin Hfa), 2 PUFFS IH 5XD Discontinued Reason: patient no longer taking Nicotine 21 MG Patch* (Habitrol 21 MG Patch*), 1 PATCH TD DAILY Discontinued Reason: patient no longer taking Past Medical History Past Medical History: *PULMONARY*, COPD, Pneumonia, Chronic Pain, *PSYCH* Past Surgical History: colectomy, orthopedic surgeries Alcohol Use: Occasionally Drug Use: marijuana Lives with: Alone Lives In: Homeless Occupation: unemployed Physical Exam Vital Signs: Temperature: 97.0, Source: Temporal, Heart Rate: 100, Respiratory Rate: 16, BP: 109/71, Pulse Oximetry: 97, Weight: 52.270 Physical Exam General: Patient is awake, alert, oriented x4 in no acute distress and well appearing.~ Head: Normocephalic and atraumatic. Eyes: Conjunctival normal. EOMI. PERRL. ENT: Mucous membranes moist. Neck: Supple, trachea is midline. Chest: Clear to auscultation bilaterally without rales, rhonchi, or wheezes. There is no accessory muscle use or retractions. Cardiac: RRR without murmurs, gallops, or rubs. Extremities: Normal strength. Diffuse cellulitis to right lower extremity with tenderness to palpation and increased erythema and warmth to touch. Progress Results/Orders Results/Orders Orders - JOAQUÍN WATT MD Hospitalist (07/05/25 18:10) Fill Out Med Reconciliation (07/05/25 18:10) Completed Orders - JOAQUÍN WATT MD Normal Saline 1000ml (0.9% Sodium Chlori (07/05/25 19:15) Normal Saline 1000ml (0.9% Sodium Chlori (07/05/25 19:15) Medications Received in ER Medications (Trade) Dose Ordered Sig/Sho Route PRN Reason Start Time Stop Time Status Last Admin Dose Admin Piperacillin/ Tazobactam/ Dextrose 50 ml @ 12.5 mls/hr Q8H IV 07/05/25 18:00 07/05/25 19:00 12.5 MLS/HR Vancomycin HCl 250 ml @ 166 mls/hr ONCE ONCE IV 07/05/25 18:15 07/05/25 19:45 DC 07/05/25 19:15 166 MLS/HR (0.9% sodium chloride (NS) 1000ml IV soln) 500 ml ONCE ONCE IVB 07/05/25 19:15 07/05/25 19:16 DC 07/05/25 19:19 500 ML (0.9% sodium chloride (NS) 1000ml IV soln) 1,000 ml ONCE ONCE IVB 07/05/25 19:15 07/05/25 19:17 DC 07/05/25 19:46 1,000 ML Vital Signs 07/05/25 07/05/25 07/05/25 07/05/25 15:33 17:50 18:13 18:30 Temp 97.0 97.0 Pulse 100 92 Resp 18 16 18 B/P (MAP) 109/71 96/63 (74) Pulse Ox 97 98 Laboratory Tests Test 07/05/25 18:19 White Blood Count 11.6 H Red Blood Count 4.33 L Hemoglobin 13.7 L Hematocrit 39.6 L Mean Corpuscular Volume 91.5 Mean Corpuscular Hemoglobin 31.7 H Mean Corpuscular Hemoglobin Concent 34.6 Red Cell Distribution Width 13.1 Platelet Count 265 Mean Platelet Volume 8.0 Neutrophils (%) (Auto) 80.0 H Lymphocytes (%) (Auto) 8.2 L Monocytes (%) (Auto) 8.5 Eosinophils (%) (Auto) 2.8 Basophils (%) (Auto) 0.5 Neutrophils # (Auto) 9.3 H Lymphocytes # (Auto) 0.9 L Monocytes # (Auto) 1.0 H Eosinophils # (Auto) 0.3 Basophils # (Auto) 0.1 CBC Comment Sodium Level 132 L Potassium Level 3.4 L Chloride Level 95 L Carbon Dioxide Level 27.3 Anion Gap 10 Blood Urea Nitrogen 30 H Creatinine 1.28 H Estimated GFR/1.73 m2 57 BUN/Creatinine Ratio 23.4 H Glucose Level 97 Lactic Acid Level 1.4 Calcium Level 8.5 Albumin 2.8 L Procalcitonin 0.88 H Chemistry Comments Medical Decision Making Findings Patient presented to the emergency room with lower extremity redness and swelling as per HPI. Differentials include but are not limited to cellulitis, DVT, Nick's cyst, sepsis therefore emergent labs and imaging indicated. Patient was significant cellulitis with an elevated white blood cell count and he had not believe he would be doing well on outpatient basis therefore IV antibiotics initiated. Departure Admitted to Inpatient Unit: yes, to hospitalist Impression: Primary Impression: Wound cellulitis Condition: Guarded Referrals: NO PRIMARY CARE PROVIDER (PCP) Signature Scribe Signature: No scribe Attestation: The note accurately reflects work and decisions made by me.Joaquín Watt MD 07/05/25 19:57 NASIM GORDILLO NP Jul 05, 2025 17:56 JOAQUÍN WATT MD Jul 05, 2025 18:53
[2025-07-05 18:38] LABS: MEAN PLATELET VOLUME 8.0 FL (7.4-10.4); RED CELL DISTRIBUTION WIDTH 13.1 % (11.5-14.5)
[2025-07-05 18:46] LABS: CREATININE 1.28 MG/DL (0.60-1.10); eCRCL 44 ML/MIN; eGFR 57 ML/MIN
[2025-07-05 18:53] LABS: TOTAL CARBON DIOXIDE 27.3 MMOL/L (24-32)
[2025-07-05] MEDS: piperacillin/tazo 3.375gm/50ml 50 ML IV SCH (19:00)
[2025-07-05] MEDS: vancomycin/NS 1 GM ADD-VANTAGE 250 ML IV ONE (19:15)
[2025-07-05] MEDS: normal saline 1000ML IV soln IVB ONE ×2 (19:19→19:46)
--- NOTE | 2025-07-05 19:28 | VASCULAR REPORT ---
Clinical History: Swelling Ultrasonic imaging with Duplex Doppler Color Flow and Spectral Analysis was performed on the left com mon femoral, femoral vein, great saphenous vein, popliteal vein, and posterior tibial veins bilateral ly using imaging and pulse Doppler probes on a Duplex ultrasound machine. The venous response to aug mentation and compression was also evaluated. The study was done at the specific request of the [facility] physician to evaluate blood flow and to evaluate for the presence of thrombosis in the above men tioned veins. WID: FINDINGS: There is a avascular mass within the popliteal fossa measuring 4.5 x 2.3 cm with diffuse low level ec hoes. Multiple septations noted throughout. On the right, all of above mentioned veins appear patent. Flow in the common femoral vein is phasic. All veins collapse with probe compression at all levels. There is normal augmentation with distal compression bilaterally. IMPRESSION: 1. No evidence of deep vein thrombosis. 2. Complex avascular mass within the right popliteal fossa measuring up to 4.5 cm. Recommend MRI of t he calf with contrast for further assessment.
[2025-07-05] MEDS ORDERED: magnesium Cl slow-release 64mg tablet PO PRN (19:55)
[2025-07-05] MEDS ORDERED: magnesium hydroxide 30ml (MOM) UD suspension PO PRN (19:55)
[2025-07-05] MEDS ORDERED: mag hydrox/Alum hydrox/simeth 30ml oral suspension PO PRN (19:55)
[2025-07-05] MEDS ORDERED: HYDROcodone/acetaminophen 5mg/325mg tablet PO PRN (19:55)
[2025-07-05] MEDS ORDERED: magnesium sulf-water 2g/50mL 50 ML IV PRN (19:55)
[2025-07-05] MEDS ORDERED: potassium Cl 20 mEq SR tablet PO PRN (19:55)
[2025-07-05] MEDS ORDERED: potassium Cl 40MEQ/1/2NS 520ml 520 ML IV PRN (19:55)
[2025-07-05] MEDS: normal saline 1000ml 1,000 ML IV SCH (19:55)
[2025-07-05] MEDS ORDERED: magnesium sulf-water 4G/100mL 100 ML IV PRN (19:55)
[2025-07-05] MEDS ORDERED: ondansetron 4mg rapidly disintigrating tab PO PRN (19:55)
[2025-07-05] MEDS ORDERED: ondansetron/PF 4mg/2ml inj IV PRN (19:55)
[2025-07-05] MEDS: heparin, porcine 5000 units/ml vial SQ SCH (20:00)
[2025-07-05] MEDS: K and/or MAG REPLACEMENT MC SCH (20:00)
[2025-07-05] MEDS ORDERED: vancomycin/NS 1 GM ADD-VANTAGE 250 ML IV SCH (20:00)
--- NOTE | 2025-07-05 20:05 | HISTORY AND PHYSICAL-Residence ---
History & Physical Providers to CC Resident Creating Document: TYLER ADAIR RES ~ History of Present Illness Primary Medical Doctor: none Reason for Admit\\Complaint: Lower limb pain and swelling History of Present Illness This is a 64-year-old male patient who is a current drug abuser and alcoholic. He presents to the hospital today due to worsening right lower limb swelling and pain over the last five days. He was wearing an ankle monitor and developed open blisters which led to progressive worsening of the swelling erythema and tenderness of the right lower limb. Pain so severe that it has led to increased imbalance and reports about 20 falls since the last 4-5 days. Denies any wound discharge. Denies any fevers, chills, nausea or vomiting. Remote history of MRSA infection in his left shoulder requiring long-term antibiotic therapy. Allergies: Coded Allergies: Sulfa (Sulfonamide Antibiotics) (Verified Allergy, Unknown, 07/05/25) Uncoded Allergies: PSYCH MEDS (Allergy, Unknown, MAKES HIM FEEL WEIRD, 06/19/17) Home Medications Home Medications Active Past Medical History Past Medical History Unknown past medical history Past Surgical History Surgical History Comment Left shoulder repair Abdominal surgeries- status post colectomy for unknown etiology Past Social History Social History Comment Current smoker, smokes 6-7 cigarettes per day Alcoholic, drinks a "few" beers per day Homeless. Ambulates independently with no assistive devices Smoking: Cigarettes, Less than 1 pack/day Alcohol Use: Occasionally Drug Use: Marijuana Lives with: Alone Lives In: Homeless Occupation: unemployed ROS Constitutional: Reports: no symptoms reported Eyes: Reports: no symptoms reported ENT: Reports: no symptoms reported Respiratory: Reports: no symptoms reported Cardiovascular: Reports: no symptoms reported Gastrointestinal: Reports: nausea Genitourinary: Reports: no symptoms reported Male Genitalia: Reports: no symptoms reported Neurological: Reports: no symptoms reported Musculoskeletal: Reports: pain, swelling Integumentary: Reports: wound(s) Allergic/Immunologic: Reports: no symptoms reported Hematologic/Lymphatic: Reports: no symptoms reported Endocrine: Reports: no symptoms reported Psychiatric: Reports: no symptoms reported Exam Vitals: Vital Signs Date Time Temp Pulse Resp B/P (MAP) Pulse Ox O2 Delivery O2 Flow Rate FiO2 07/05/25 19:20 84 19 99/64 (76) 96 07/05/25 18:13 97.0 General: General: Awake and Alert, no acute distress. Poorly nourished HEENT: Conjunctiva pink, Sclera clear, Mucus Membranes moist. Resp: Unlabored. Lungs clear to auscultation bilaterally. Heart: Regular Rate and rhythm, normal S1 and S2 without murmur, rub or gallop. Abdomen: Soft and non tender no organomegaly. Large horizontal scar across the abdomen Extremities: Swelling, tenderness, erythema and warmth of the right lower limb with the pain on superficial touch as well. Diminished sensation in the right lower limb when compared to left. Limitation in range of movement of the right lower limb. Erythema extending from the foot, around the leg in posterior aspect of the thigh. Pedal pulses intact in bilateral lower limbs. Large 5 x 4cm ulcer on the lateral aspect of the right lower limb 1 cm above the malleolus, 2-3 cm above this large ulcer another ulcer of 3 x 2 cm. Mildly positive Homans sign of the right leg Skin: Warm and Dry. One small blister on the medial aspect of the left lower limb, wound above the right eyebrow. Laceration on the middle finger Diagnostic Data Last Recorded Lab Results: 07/05/25181807/05/251818 Counseling Services Smoking & Tobacco Cessation: 3-10 Minutes Advance Care Planning Advanced Care plannin - 30 Minutes Additional Plan Cellulitis of the right lower limb: Possible superimposed popliteal cyst rupture Pedal pulses intact. Diminished sensation Mild leukocytosis secondary to above. Lactic acid normal. Protocol mildly elevated at 0.8 CPK and urine negative for rhabdomyolysis Consult ortho in a.m. for popliteal cyst Blood cultures ordered. History of MRSA; currently on cefepime and vancomycin. Recommend ID consultation in a.m. D-dimer positive, elevated PT in APTT. Venous ultrasound ruled out DVT, no signs of pulmonary embolism Likely D-dimer acute phase reactant. Echocardiogram for any wall motion abnormalities and CTA chest if signs of decompensation Pain management with Tylenol, avoid narcotics due to high-risk behavior Wound Care ordered Acute kidney injury: POA Likely secondary to vasomotor nephropathy IVF with a rate of 100 cc/hour UA negative for proteinuria. UTox positive for methamphetamine Spot urine studies in line with prerenal injury On cefepime and vancomycin, closely monitor BMP I&O monitoring Hyponatremia: POA Mild; asymptomatic Likely hypovolemic hyponatremia Follow spot urine studies Continue IVF at a rate of 100 cc/hour Monitor BMP Alcohol use disorder: Nicotine use disorder: Methamphetamine use disorder Homelessness On withdrawal protocol Nicotine patch 14 mg ordered Awaiting urine tox 16-18 minutes of counseling regarding the need to quit smoking and the high-risk behavior explained Substance use navigator and social worker clinical consulted Anemia: Likely dimorphic Normocytic and hypochromic Elevated ferritin with low iron; awaiting transferrin. Anemia likely secondary to nutritional/chronic disease Ferritin highly elevated to 1492 Expect decrease in hemoglobin after IV hydration Follow iron studies and vitamin B12 Severe malnutrition: BMI 14.4 Likely secondary to poor p.o. intake Continue renal diet Lines: PIV Code status: DNR Diet: Renal DVT prophylaxis: Heparin Tyler Adair PGY3, Internal medicine resident Date of Service: Jul 05, 2025 Billing Provider: ALYSSIA HUGGINS MD, DEEPANJALI, RES Jul 05, 2025 20:05
[2025-07-05] MEDS ORDERED: haloperidol lactate 5mg/ml inj IM PRN (20:40)
[2025-07-05 20:46] LABS: INR 1.2 INR
[2025-07-05 21:06] LABS: APTT 43 SECONDS (22-32)
[2025-07-05 21:40] LABS: CHOL/HDL RATIO 6.8 (0.00-4.99); LDL CHOLESTEROL 76 MG/DL (50-100)
[2025-07-05] MEDS: docusate sod 100mg capsule PO SCH (21:46)
--- NOTE | 2025-07-05 21:47 | RADIOLOGY REPORT ---
CLINICAL HISTORY: wound TECHNIQUE: View of the chest was obtained. WID: COMPARISON: DI CHEST,TWO VIEWS on DOS: 02/14/25, CHEST,SINGLE VIEW on DOS: 12/02/22, CHEST,SINGLE VIEW o n DOS: 11/02/22, CHEST,SINGLE VIEW on DOS: 04/21/22 FINDINGS: Lungs: clear Cardiomediastinal silhouette: normal in size Bones: Status post left shoulder arthroplasty with intrinsic screw and surrounding periosteal reactio n Imaged upper Abdomen: unremarkable. IMPRESSION: 1. NO ACUTE CARDIOPULMONARY PROCESS.
[2025-07-05] MEDS: potassium Cl 20 mEq SR tablet PO PRN (21:53)
[2025-07-05 22:50] VITALS: BP 110/64; PULSE 84; RESP 18; TEMP 97.1; O2SAT 98
[2025-07-05 23:57] LABS: LEUKOCYTE ESTERASE ,URINE NEGATIVE (Neg); NITRITES, URINE NEGATIVE (Neg); OCCULT BLOOD,URINE NEGATIVE (Neg); UA COLLECTION TYPE URINAL
[2025-07-06] MEDS: cefepime 1GM/NS ADD-VANTAGE 100 ML IV SCH
[2025-07-06 00:06] LABS: MUCUS STRANDS FEW /LPF (Neg); SQUAMOUS EPITHELIAL CELL,UR FEW /LPF (FEW); URIC ACID CRYSTALS 2+ /HPF (NEGATIVE)
[2025-07-06 00:07] LABS: AMORPHOUS URATES 1+
[2025-07-06 00:17] LABS: CREATININE,URINE RANDOM 106.0 MG/DL; TOTAL PROTEIN,URINE RANDOM 43.9 MG/DL; URINE AMPHETAMINE SCREEN POSITIVE (Neg); URINE BARBITUATE SCREEN NEGATIVE (Neg); URINE BENZODIAZEPINES SCREEN NEGATIVE (Neg); URINE CANNABINOID SCREEN POSITIVE (Neg); URINE COCAINE SCREEN NEGATIVE (Neg); URINE METHADONE SCREEN NEGATIVE (Neg); URINE OPIATE SCREEN NEGATIVE (Neg); URINE PHENCYCLIDINE SCREEN NEGATIVE (Neg)
[2025-07-06] MEDS: cefepime 1GM in D5W 50mL 50 ML IV ONE (01:05)
[2025-07-06] MEDS: HYDROcodone/acetaminophen 10/325mg tab PO PRN (05:04)
[2025-07-06 06:00] VITALS: BP 105/72; PULSE 69; RESP 18; TEMP 97.6; O2SAT 98
[2025-07-06] MEDS: nicotine 14mg patch - 24hr TD SCH (07:48)
[2025-07-06 08:13] LABS: MEAN PLATELET VOLUME 7.8 FL (7.4-10.4); RED CELL DISTRIBUTION WIDTH 13.2 % (11.5-14.5)
[2025-07-06 08:34] LABS: CREATININE 0.99 MG/DL (0.60-1.10); TOTAL CARBON DIOXIDE 23.8 MMOL/L (24-32); eCRCL 57 ML/MIN; eGFR 77 ML/MIN
[2025-07-06] MEDS: cefepime 1GM in D5W 50mL 50 ML IV SCH (08:44)
[2025-07-06] MEDS ORDERED: NO HOME MEDS (09:07)
[2025-07-06 10:00] VITALS: BP 101/63; PULSE 83; RESP 21; TEMP 97.3; O2SAT 98
[2025-07-06] MEDS ORDERED: diazepam inj 5 MG/ML inj. IV PRN (11:45)
[2025-07-06] MEDS: lactose-reduced food (Ensure Enlive) - 237ml bottle PO SCH (13:00)
--- NOTE | 2025-07-06 13:01 | RADIOLOGY REPORT ---
CTA Chest with intravenous contrast INDICATION: SOB COMPARISON: DI CHEST,SINGLE VIEW on DOS: 07/05/25, CT CTA CHEST PE W/ IV CONTRAST on DOS: 02/14/25, DI CHEST,TWO VIEWS on DOS: 02/14/25, CHEST,SINGLE VIEW on DOS: 12/02/22, CHEST,SINGLE VIEW on DOS: 11/02/22 TECHNIQUE: Multidetector spiral CTA of the chest was performed of the chest with intravenous contrast . PULMONARY ANGIOGRAPHY PROTOCOL was utilized using a bolus-tracking technique centered on the main p ulmonary artery. Axial, coronal and sagittal multiplanar and MIP reformats were performed. Radiation Dose : 1. Chest: CTDI volume is 7.3 mGy. Dose-length product is 303.8 mGy*cm The dose indicators for CT are the volume Computed Tomography (CT) Dose Index (CTDIvol) and the Dose Length Product (DLP), and are measured in units of mGy and mGy-cm, respectively. These indicators are not patient dose, but values generated from the CT scanner acquisition factors. The report includes radiation exposure data for exposures received during this examination. Findings: Pulmonary artery: No pulmonary embolism Lower neck: Normal thyroid. Lungs: Biapical scarring. No focal consolidation, pleural effusion or pneumothorax. Heart/Vascular Structures: Normal heart size. No pericardial effusion. Lymph Nodes: No adenopathy Pleura: No pleural effusion or significant pneumothorax. Musculoskeletal: No acute osseous abnormality. Soft tissues: Normal. Upper abdomen: Limited portions of the upper abdomen are unremarkable. IMPRESSION: No pulmonary embolism. No acute thoracic finding.
[2025-07-06 18:00] VITALS: BP 100/63; PULSE 76; RESP 18; TEMP 98.1; O2SAT 100
--- NOTE | 2025-07-06 19:14 | PROGRESS NOTE ---
Daily Progress Note Providers to CC ~ Antibiotic Timeout Antibiotic Ordered?: Yes Subjective Patient was seen in presence of nursing staff, patient was strongly advised to stop alcohol and meth. Right lower extremity tender on exam Objective Vital Signs Date Time Temp Pulse Resp B/P (MAP) Pulse Ox O2 Delivery O2 Flow Rate FiO2 07/06/25 18:00 98.1 76 18 100/63 (75) 100 Room Air Result Diagram: 07/06/25 0750 07/06/25 0750 General-patient not in any acute distress, alert awake oriented, chronically ill-appearing, looks comfortable HEENT-atraumatic normocephalic, neck supple without elevated JVD, No lymphadenopathy bilaterally. Eyes-no icterus or pallor seen in eyes Chest-clear to auscultation bilaterally, breathing nonlabored no tachypnea, no wheezing, no crepitation, no crackles. Heart-S1-S2 normal, regular heart rate no murmur Abdomen bowel sounds positive on auscultation, soft nondistended nontender no guarding, no rigidity Skin no active skin rash, signs of healing right lower extremity cellulitis Neurology-grossly intact, nonfocal alert awake oriented Extremity- no pedal edema able to move all 4 extremities, signs of healing right lower extremity cellulitis Psychiatry - patient is not confused or agitated cooperated during physical examination Coagulation Studies Laboratory Tests Test 07/05/25 20:13 Prothrombin Time 12.4 SECONDS (9.0-12.0) H INR International Normalized Ratio 1.2 INR Activated Partial Thromboplast Time 43 SECONDS (22-32) H D-Dimer 3.51 MG/L FEU (0-0.50) H D-Dimer Comment Coagulation Comments Problem\Assessment\Plan Cellulitis of the right lower limb: Possible superimposed popliteal cyst rupture Pedal pulses intact. Diminished sensation Mild leukocytosis secondary to above. Lactic acid normal. Protocol mildly elevated at 0.8 CPK and urine negative for rhabdomyolysis Blood cultures negative so far , will follow. History of MRSA; stopped cefepime and will continue vancomycin. D-dimer positive, elevated PT in APTT. Venous ultrasound ruled out DVT, no signs of pulmonary embolism Pain management with Tylenol, avoid narcotics due to high-risk behavior Wound Care to continue Acute kidney injury: resolved Likely secondary to vasomotor nephropathy IVF with a rate of 100 cc/hour UA negative for proteinuria. UTox positive for methamphetamine Spot urine studies in line with prerenal injury will closely monitor BMP I&O monitoring Hyponatremia: POA Mild; asymptomatic Likely hypovolemic hyponatremia Follow spot urine studies Continue IVF at a rate of 100 cc/hour Monitor BMP Alcohol use disorder: Nicotine use disorder: Methamphetamine use disorder Homelessness On withdrawal protocol Nicotine patch 14 mg ordered counselled regarding the need to quit smoking and the high-risk behavior explained Substance use navigator and family welfare social work professor consulted Anemia: Likely dimorphic Normocytic and hypochromic Elevated ferritin with low iron; awaiting transferrin. Anemia likely secondary to nutritional/chronic disease Ferritin highly elevated to 1492 Expect decrease in hemoglobin after IV hydration will Follow iron studies and vitamin B12 Severe malnutrition: BMI 14.4 Likely secondary to poor p.o. intake Continue renal diet Lines: PIV Code status: DNR Diet: Renal DVT prophylaxis: Heparin Patient's current condition is guarded I will continue to follow patient in AM . Date of Service: Jul 06, 2025 Billing Provider: JOSE OCASIO MD Common Visit Codes: [id number] INP/OBS CARE(HIGH) JOSE OCASIO MD Jul 06, 2025 19:14
[2025-07-06] MEDS: vancomycin/NS 1 GM ADD-VANTAGE 250 ML IV SCH (19:37)
[2025-07-06 20:00] VITALS: RESP 18; O2SAT 100
[2025-07-06 22:00] VITALS: BP 103/55; PULSE 88; RESP 16; TEMP 98.1; O2SAT 97
[2025-07-07 06:43] LABS: MEAN PLATELET VOLUME 7.3 FL (7.4-10.4); RED CELL DISTRIBUTION WIDTH 13.3 % (11.5-14.5)
[2025-07-07 06:54] LABS: CREATININE 0.75 MG/DL (0.60-1.10); TOTAL CARBON DIOXIDE 26.4 MMOL/L (24-32); eCRCL 76 ML/MIN; eGFR > 90 ML/MIN
[2025-07-07] MEDS ORDERED: vancomycin/NS 1 GM ADD-VANTAGE 250 ML IV SCH (07:10)
[2025-07-07 09:07] LABS: BANDS% (MANUAL) 4.0 % (0-10); EOSINOPHILS % (MANUAL) 3.0 % (0-6); LYMPHOCYTES % (MANUAL) 7.0 % (21-51); METAMYLEOCYTES% (MANUAL) 2.0 % (0-0); MONOCYTES % (MANUAL) 3.0 % (2-12); NEUTROPHILS % (MANUAL) 81.0 % (42-75)
[2025-07-07 09:08] LABS: PLATELET ESTIMATE NORMAL
[2025-07-07 10:00] VITALS: BP 101/59; PULSE 79; RESP 16; TEMP 96.8; O2SAT 97
[2025-07-07] MEDS: vancomycin/NS 1 GM ADD-VANTAGE 250 ML IV SCH (10:06)
--- NOTE | 2025-07-07 13:35 | PROGRESS NOTE ---
Daily Progress Note Providers to CC ~ Antibiotic Timeout Antibiotic Ordered?: Yes Subjective Patient was seen in his room right lower extremity cellulitis healing. Patient participated with PT but as per PT not safe for discharge at this time. Objective Vital Signs Date Time Temp Pulse Resp B/P (MAP) Pulse Ox O2 Delivery O2 Flow Rate FiO2 07/07/25 06:30 18 07/06/25 22:00 98.1 88 103/55 (71) 97 Room Air Result Diagram: 07/07/2562607/07/25626 General-patient not in any acute distress, alert awake oriented, chronically ill-appearing, looks comfortable HEENT-atraumatic normocephalic, neck supple without elevated JVD, No lymphadenopathy bilaterally. Eyes-no icterus or pallor seen in eyes Chest-clear to auscultation bilaterally, breathing nonlabored no tachypnea, no wheezing, no crepitation, no crackles. Heart-S1-S2 normal, regular heart rate no murmur Abdomen bowel sounds positive on auscultation, soft nondistended nontender no guarding, no rigidity Skin no active skin rash, signs of healing right lower extremity cellulitis Neurology-grossly intact, nonfocal alert awake oriented Extremity- no pedal edema able to move all 4 extremities, signs of healing right lower extremity cellulitis Psychiatry - patient is not confused or agitated cooperated during physical examination Coagulation Studies Laboratory Tests Test 07/05/25 20:13 Prothrombin Time 12.4 SECONDS (9.0-12.0) H INR International Normalized Ratio 1.2 INR Activated Partial Thromboplast Time 43 SECONDS (22-32) H D-Dimer 3.51 MG/L FEU (0-0.50) H D-Dimer Comment Coagulation Comments Problem\Assessment\Plan Cellulitis of the right lower limb: Possible superimposed popliteal cyst rupture Pedal pulses intact. Diminished sensation Mild leukocytosis secondary to above. Lactic acid normal. Protocol mildly elevated at 0.8 CPK and urine negative for rhabdomyolysis Blood cultures negative so far , will follow. History of MRSA; stopped cefepime and will continue vancomycin. D-dimer positive, elevated PT in APTT. Venous ultrasound ruled out DVT, no signs of pulmonary embolism Pain management with Tylenol, avoid narcotics due to high-risk behavior Wound Care to continue Acute kidney injury: resolved Likely secondary to vasomotor nephropathy IVF with a rate of 100 cc/hour UA negative for proteinuria. UTox positive for methamphetamine Spot urine studies in line with prerenal injury will closely monitor BMP I&O monitoring Hyponatremia: POA Mild; asymptomatic Likely hypovolemic hyponatremia Follow spot urine studies Continue IVF at a rate of 100 cc/hour Monitor BMP Alcohol use disorder: Nicotine use disorder: Methamphetamine use disorder Homelessness On withdrawal protocol Nicotine patch 14 mg ordered counselled regarding the need to quit smoking and the high-risk behavior explained Substance use navigator and social media analyst consulted Anemia: Likely dimorphic Normocytic and hypochromic Elevated ferritin with low iron; awaiting transferrin. Anemia likely secondary to nutritional/chronic disease Ferritin highly elevated to 1492 Expect decrease in hemoglobin after IV hydration will Follow iron studies and vitamin B12 Severe malnutrition: BMI 14.4 Likely secondary to poor p.o. intake Continue renal diet Lines: PIV Code status: DNR Diet: Renal DVT prophylaxis: Heparin Patient's current condition is guarded I will continue to follow patient in AM . Continue physical therapy daily. Date of Service: Jul 07, 2025 Billing Provider: JOSE OCASIO MD Common Visit Codes: [id number] INP/OBS CARE(HIGH) JOSE OCASIO MD Jul 07, 2025 13:35
[2025-07-07 14:00] VITALS: BP 93/55; PULSE 90; RESP 16; TEMP 97.9; O2SAT 98
[2025-07-07 18:30] VITALS: BP 105/66; PULSE 94; RESP 16; TEMP 99.7; O2SAT 97
[2025-07-07 22:00] VITALS: BP 96/54; PULSE 94; RESP 16; TEMP 99.5; O2SAT 95
[2025-07-08 06:00] VITALS: BP 104/64; PULSE 96; RESP 17; TEMP 98.7; O2SAT 97
[2025-07-08] MEDS: VANCOMYCIN LEVEL IV ONE (07:30)
[2025-07-08 08:36] LABS: MEAN PLATELET VOLUME 7.4 FL (7.4-10.4); RED CELL DISTRIBUTION WIDTH 13.4 % (11.5-14.5)
[2025-07-08 08:45] LABS: CREATININE 0.67 MG/DL (0.60-1.10); TOTAL CARBON DIOXIDE 25.8 MMOL/L (24-32); eCRCL 85 ML/MIN; eGFR > 90 ML/MIN
[2025-07-08 10:00] VITALS: BP 101/58; PULSE 96; RESP 18; TEMP 98.7; O2SAT 99
[2025-07-08] MEDS: CefTRIAXone 2gm/D5W 50ml BAG 50 ML IV SCH (10:45)
[2025-07-08] MEDS: HYDROcodone/acetaminophen 10/325mg tab PO PRN (14:53)
[2025-07-08 18:00] VITALS: BP 108/62; PULSE 98; RESP 16; TEMP 99; O2SAT 96
--- NOTE | 2025-07-08 18:51 | PROGRESS NOTE ---
Daily Progress Note Providers to CC ~ Antibiotic Timeout Antibiotic Ordered?: Yes Subjective Patient feels he can not walk due to excessive pain over right lower extremity. WBC still elevated rest of the sepsis workup unremarkable Objective Vital Signs Date Time Temp Pulse Resp B/P (MAP) Pulse Ox O2 Delivery O2 Flow Rate FiO2 07/08/25 16:10 15 07/08/25 10:00 98.7 96 101/58 (72) 99 Room Air Result Diagram: 07/08/25 0742 07/08/25 0742 General-patient not in any acute distress, alert awake oriented, chronically ill-appearing, looks comfortable HEENT-atraumatic normocephalic, neck supple without elevated JVD, No lymphadenopathy bilaterally. Eyes-no icterus or pallor seen in eyes Chest-clear to auscultation bilaterally, breathing nonlabored no tachypnea, no wheezing, no crepitation, no crackles. Heart-S1-S2 normal, regular heart rate no murmur Abdomen bowel sounds positive on auscultation, soft nondistended nontender no guarding, no rigidity Skin no active skin rash, signs of healing right lower extremity cellulitis Neurology-grossly intact, nonfocal alert awake oriented Extremity- no pedal edema able to move all 4 extremities, signs of healing right lower extremity cellulitis Psychiatry - patient is not confused or agitated cooperated during physical examination Coagulation Studies Laboratory Tests Test 07/05/25 20:13 Prothrombin Time 12.4 SECONDS (9.0-12.0) H INR International Normalized Ratio 1.2 INR Activated Partial Thromboplast Time 43 SECONDS (22-32) H D-Dimer 3.51 MG/L FEU (0-0.50) H D-Dimer Comment Coagulation Comments Problem\Assessment\Plan Cellulitis of the right lower limb: Possible superimposed popliteal cyst rupture Pedal pulses intact. Diminished sensation Mild leukocytosis secondary to above. Lactic acid normal. Protocol mildly elevated at 0.8 CPK and urine negative for rhabdomyolysis Blood cultures negative so far , will follow. History of MRSA; stopped cefepime and will continue vancomycin. D-dimer positive, elevated PT in APTT. Venous ultrasound ruled out DVT, no signs of pulmonary embolism Pain management with Tylenol, Wound Care to continue Acute kidney injury: resolved Likely secondary to vasomotor nephropathy IVF with a rate of 100 cc/hour UA negative for proteinuria. UTox positive for methamphetamine Spot urine studies in line with prerenal injury will closely monitor BMP I&O monitoring Hyponatremia: POA- resolved Mild; asymptomatic Likely hypovolemic hyponatremia Follow spot urine studies Continue IVF at a rate of 100 cc/hour Monitor BMP Alcohol use disorder: Nicotine use disorder: Methamphetamine use disorder Homelessness On withdrawal protocol Nicotine patch 14 mg ordered counselled regarding the need to quit smoking and the high-risk behavior explained Substance use navigator and social security specialist consulted Anemia: Likely dimorphic Normocytic and hypochromic Elevated ferritin with low iron; awaiting transferrin. Anemia likely secondary to nutritional/chronic disease Ferritin highly elevated to 1492 Expect decrease in hemoglobin after IV hydration will Follow iron studies and vitamin B12 Severe malnutrition: BMI 14.4 Likely secondary to poor p.o. intake Continue renal diet Lines: PIV Code status: DNR Diet: Renal DVT prophylaxis: Heparin Patient's current condition is guarded I will continue to follow patient in AM . Continue physical therapy daily. Date of Service: Jul 08, 2025 Billing Provider: JOSE OCASIO MD Common Visit Codes: [id number] INP/OBS CARE(HIGH) JOSE OCASIO MD Jul 08, 2025 18:51
[2025-07-08] MEDS: VANCOmycin 1250MG/NS 250ml Bag 250 ML IV SCH (19:17)
[2025-07-08 22:00] VITALS: BP 104/62; PULSE 95; RESP 17; TEMP 98.1; O2SAT 97
[2025-07-09 06:24] LABS: MEAN PLATELET VOLUME 7.1 FL (7.4-10.4); RED CELL DISTRIBUTION WIDTH 13.4 % (11.5-14.5)
[2025-07-09 06:37] VITALS: BP 101/66; PULSE 85; RESP 15; TEMP 98.6; O2SAT 97
[2025-07-09 06:54] LABS: CREATININE 0.59 MG/DL (0.60-1.10); TOTAL CARBON DIOXIDE 26.7 MMOL/L (24-32); eCRCL 96 ML/MIN; eGFR > 90 ML/MIN
[2025-07-09 08:06] LABS: BANDS% (MANUAL) 6.0 % (0-10); EOSINOPHILS % (MANUAL) 2.0 % (0-6); LYMPHOCYTES % (MANUAL) 9.0 % (21-51); METAMYLEOCYTES% (MANUAL) 5.0 % (0-0); MONOCYTES % (MANUAL) 5.0 % (2-12); MYELOCYTES % (MANUAL) 1.0 % (0-0); NEUTROPHILS % (MANUAL) 72.0 % (42-75)
[2025-07-09 08:07] LABS: PLATELET ESTIMATE NORMAL
[2025-07-09] MEDS ORDERED: iohexol 300mg/ml 100ml inj. ONE (11:18)
--- NOTE | 2025-07-09 11:57 | RADIOLOGY REPORT ---
CLINICAL INDICATION: unable to ambulate, right lower extremity cellulitis TECHNIQUE: CT of the right lower extremity was performed with 100 mL Omnipaque [address] Coronal and sagittal reformatted images are provided. COMPARISON: None CT Dose: CTDI volume is 7.6 mGy. Dose-length product is 583.4 mGy*cm FINDINGS: No fracture or dislocation. No evidence of periosteal reaction or cortical destruction. Joint spaces are maintained. There is extensive subcutaneous edema in the visualized lower extremity from the knee to the ankle. There is a peripherally enhancing fluid collection in the calf measuring 8.6 cm AP by 3.7 cm transverse by 23.5 cm craniocaudal. The collection is within the lateral gastrocnemius muscle belly. The contralateral leg is partially included but not well evaluated. IMPRESSION: 1. Peripherally enhancing fluid collection centered within the lateral gastrocnemius muscle belly tutu suring 23.5 cm with septation. The finding could represent hematoma, seroma or abscess. 2. Extensive soft tissue swelling in the right leg. 3. No CT evidence of osteomyelitis in the right lower extremity. All CT scans at this medical facility are performed using dose modulation techniques as appropriate t o a performed exam including the following: Automated exposure control was utilized; adjustment of th e MA and/or KV according to patient size; and use of iterative reconstruction technique.
[2025-07-09] MEDS ORDERED: magnesium sulf-water 2g/50mL 50 ML IV PRN (17:10)
[2025-07-09] MEDS ORDERED: magnesium sulf-water 4G/100mL 100 ML IV PRN (17:10)
[2025-07-09 18:00] VITALS: BP 109/62; PULSE 89; RESP 22; TEMP 98.3; O2SAT 97
--- NOTE | 2025-07-09 18:29 | PROGRESS NOTE ---
Daily Progress Note Providers to CC ~ Antibiotic Timeout Antibiotic Ordered?: Yes Subjective Patient's right lower extremity redness and swelling is still not getting better despite of starting antibiotics very mild improvement in WBC count. CT of right lower extremity ordered and results discussed with Dr. Mckeon product management specialist on-call who is willing to evaluate the patient and wants to keep patient NPO after midnight CT LOWER EXTREMITY- IMPRESSION: 1. Peripherally enhancing fluid collection centered within the lateral gastrocnemius muscle belly measuring 23.5 cm with septation. The finding could represent hematoma, seroma or abscess. 2. Extensive soft tissue swelling in the right leg. 3. No CT evidence of osteomyelitis in the right lower extremity. Objective Vital Signs Date Time Temp Pulse Resp B/P (MAP) Pulse Ox O2 Delivery O2 Flow Rate FiO2 07/09/25 15:59 16 07/09/25 08:00 Room Air 07/09/25 06:37 98.6 85 101/66 (78) 97 Result Diagram: 07/09/25 0534 07/09/25 0534 General-patient not in any acute distress, alert awake oriented, chronically ill-appearing, looks comfortable HEENT-atraumatic normocephalic, neck supple without elevated JVD, No lymphadenopathy bilaterally. Eyes-no icterus or pallor seen in eyes Chest-clear to auscultation bilaterally, breathing nonlabored no tachypnea, no wheezing, no crepitation, no crackles. Heart-S1-S2 normal, regular heart rate no murmur Abdomen bowel sounds positive on auscultation, soft nondistended nontender no guarding, no rigidity Skin no active skin rash, signs of right lower extremity cellulitis Neurology-grossly intact, nonfocal alert awake oriented Extremity- no pedal edema able to move all 4 extremities, signs of healing right lower extremity cellulitis Psychiatry - patient is not confused or agitated cooperated during physical examination Coagulation Studies Laboratory Tests Test 07/05/25 20:13 Prothrombin Time 12.4 SECONDS (9.0-12.0) H INR International Normalized Ratio 1.2 INR Activated Partial Thromboplast Time 43 SECONDS (22-32) H D-Dimer 3.51 MG/L FEU (0-0.50) H D-Dimer Comment Coagulation Comments Problem\Assessment\Plan Cellulitis of the right lower limb: Possible superimposed popliteal cyst rupture Pedal pulses intact. Diminished sensation Mild leukocytosis secondary to above. Lactic acid normal. Protocol mildly elevated at 0.8 CPK and urine negative for rhabdomyolysis Blood cultures negative so far , will follow. History of MRSA; stopped cefepime and will continue vancomycin. D-dimer positive, elevated PT in APTT. Venous ultrasound ruled out DVT, no signs of pulmonary embolism Pain management with Tylenol, Wound Care to continue CT of right lower extremity ordered and results discussed with Dr. Mckeon product management specialist on-call who is willing to evaluate the patient and wants to keep patient NPO after midnight Acute kidney injury: resolved Likely secondary to vasomotor nephropathy IVF with a rate of 100 cc/hour UA negative for proteinuria. UTox positive for methamphetamine Spot urine studies in line with prerenal injury will closely monitor BMP I&O monitoring Hyponatremia: POA- resolved Mild; asymptomatic Likely hypovolemic hyponatremia Follow spot urine studies Continue IVF at a rate of 100 cc/hour Monitor BMP Alcohol use disorder: Nicotine use disorder: Methamphetamine use disorder Homelessness On withdrawal protocol Nicotine patch 14 mg ordered counselled regarding the need to quit smoking and the high-risk behavior explained Substance use navigator and social work specialist consulted Anemia: Likely dimorphic Normocytic and hypochromic Elevated ferritin with low iron; awaiting transferrin. Anemia likely secondary to nutritional/chronic disease Ferritin highly elevated to 1492 Expect decrease in hemoglobin after IV hydration will Follow iron studies and vitamin B12 Severe malnutrition: BMI 14.4 Likely secondary to poor p.o. intake Continue renal diet Lines: PIV Code status: DNR Diet: Renal DVT prophylaxis: Heparin Patient's current condition is guarded I will continue to follow patient in AM . Continue physical therapy daily. Date of Service: Jul 09, 2025 Billing Provider: JOSE OCASIO MD Common Visit Codes: [id number] INP/OBS CARE(HIGH) JOSE OCASIO MD Jul 09, 2025 18:29
[2025-07-09] MEDS: magnesium Cl slow-release 64mg tablet PO PRN (19:15)
[2025-07-09 22:00] VITALS: BP 105/65; PULSE 84; RESP 17; TEMP 98.1; O2SAT 98
[2025-07-10] VITALS (21 sets, daily range): BP systolic 100–158; BP diastolic 58–93; PULSE 72–108; RESP 14–37; TEMP 97.9–98.6; O2SAT 93–100
[2025-07-10] MEDS: VANCOMYCIN LEVEL IV ONE (07:30)
[2025-07-10 08:56] LABS: MEAN PLATELET VOLUME 6.9 FL (7.4-10.4); RED CELL DISTRIBUTION WIDTH 13.5 % (11.5-14.5)
[2025-07-10 09:23] LABS: CREATININE 0.52 MG/DL (0.60-1.10); TOTAL CARBON DIOXIDE 29.6 MMOL/L (24-32); eCRCL 109 ML/MIN; eGFR > 90 ML/MIN
[2025-07-10 09:27] LABS: BANDS% (MANUAL) 4.0 % (0-10); EOSINOPHILS % (MANUAL) 2.0 % (0-6); LYMPHOCYTES % (MANUAL) 5.0 % (21-51); METAMYLEOCYTES% (MANUAL) 4.0 % (0-0); MONOCYTES % (MANUAL) 4.0 % (2-12); NEUTROPHILS % (MANUAL) 81.0 % (42-75)
[2025-07-10 09:28] LABS: PLATELET ESTIMATE NORMAL
[2025-07-10] MEDS ORDERED: bacitracin 15gm ointment TP ONE (15:12)
[2025-07-10] MEDS ORDERED: ondansetron/PF 4mg/2ml inj IV PRN (15:25)
[2025-07-10] MEDS ORDERED: enalaprilat 1.25mg/ml 2ml vial IV PRN (15:25)
[2025-07-10] MEDS: ringers solution, lacted 1,000 ML IV SCH (15:25)
[2025-07-10] MEDS ORDERED: labetalol 20mg/4ml (5mg/ml) syringe IV PRN (15:25)
[2025-07-10] MEDS ORDERED: meperidine/PF 25mg/ml syringe IV PRN ×3 (15:25)
[2025-07-10] MEDS ORDERED: midazolam 1 mg/ML 2ml injection ONE (15:49)
[2025-07-10] MEDS ORDERED: fentaNYL/PF 50MCG/1 ML 2ML syringe ONE (15:49)
[2025-07-10] MEDS ORDERED: LIDOcaine 2% (20mg/ml) 5ml vial ONE (16:01)
[2025-07-10] MEDS ORDERED: propofol inj 20 ML IV ONE (16:01)
[2025-07-10] MEDS ORDERED: vancomycin 1,000mg inj ONE (16:17)
[2025-07-10] MEDS ORDERED: morphine 4 MG/ML inj SYRINge ONE (16:27)
--- NOTE | 2025-07-10 16:49 | CONSULTATION REPORT ---
History of Present Illness Providers to CC ~ Reason for Admit\Admit Dx: Lower limb pain and swelling Refering MD: none History of Present Illness Orthopedic consultation. History of present illness: 64-year-old male who is homeless with a history of drug and alcohol dependency developed some blistering from his ankle monitoring brace to his right lower extremity this occurred approximately five days ago he developed thin progressive swelling and severe pain and this is caused repetitive falling and giving out of his leg. Presented to the emergency room with a grossly swollen leg workup included a CT scan which revealed a large abscess posterior compartment of the right leg. Past medical/surgical history: As per the admitting history and physical Review of systems: As only complaint today is right leg pain. Examination: Basis with this patient has very severely swollen right lower leg without compartment findings. Denies any paresthesias anesthesia or increased pain with ankle dorsiflexion and plantar flexion. He has palpable fluctuant mass involving the posterior and posterior medial aspect of his lower extremity from just below the knee to just proximal to the ankle. Knee exam was normal. Ankle and foot exam was normal. The balance of the orthopedic exam was within normal limits. CT scan reveals a large abscess of the posterior aspect of the leg involving just the subcutaneous compartment and not compromising and muscle compartments. Assessment: Subcutaneous abscess right lower extremity. Plan: This patient will require urgent I and D probable placement of a wound VAC surgery was scheduled after I obtained informed consent. Allergies: Coded Allergies: Sulfa (Sulfonamide Antibiotics) (Verified Allergy, Unknown, 07/05/25) Uncoded Allergies: PSYCH MEDS (Allergy, Unknown, MAKES HIM FEEL WEIRD, 06/19/17) Home Medications Home Medications Active Reported No Home Medications (Home Med List) Each Physical Exam Last Vital Signs Recorded: Temperature: 97.9, Source: Oral, Heart Rate: 80, Respiratory Rate: 16, BP: 100/61, Pulse Oximetry: 93, Weight: 52.270 Results Diagram Lab Result Diagram: 07/10/25 0838 07/10/25 0838 DEYA HURTADO MD Jul 10, 2025 16:49
--- NOTE | 2025-07-10 16:54 | OPERATIVE REPORT ---
Operative Report Providers to ~ Date of Procedure: Jul 10, 2025 Pre-Operative Diagnosis: Abscess right leg Post-Operative Diagnosis SAME as PRE-Op Procedure Performed I and D abscess right leg application of wound VAC Surgeon: Line name Antenna Engineer None Anesthesiologist: Gareth Wright Type of Anesthesia: General Findings: Large cup subcutaneous abscess not compromising the fascial compartments healthy viable muscles Complications None Prosthetics\Implants used: 1 g of vancomycin powder application of the wound VAC negative pressure dressing Estimated Blood Loss: Less than 100 cc Specimen Removed: Large purulent material cultures were taken. Description of Procedure: The patient is taken to the operating room on an urgent basis due to the swelling and findings on CT scan indicating a large abscess subcutaneously. Once in the operating room he was given prophylactic intravenous antibiotics and then vancomycin I had signed his right leg that has given a general anesthetic and placed in supine position on the OR table. A well-padded upper thigh tourniquet was placed in his upper thigh the right side. This leg was elevated for 10 minutes while the feeding prepped and draped and tourniquet was insufflated. Surgical time-out was taken protocol and the case was begun. Posterior medial incision was made to protect the saphenous nerve and vein this incision measured approximately 6 in in length. Once the subcutaneous tissue was released large amounts of purulent material exited the wound into a large basin cultures were taken of this material. Digital decompression was then accomplished and the area was irrigated with a lightly pulsatile normal saline proximally 2 L and 1 L of antiseptic solution. Hemostasis was checked with electrocautery. After all evaluations of the posterior compartments healthy viable muscle tissue with good contractions with electric stimulation a wound VAC was applied and placed to negative pressure suction at 25 mm negative pressure standard setting. Tourniquet had been released good distal pulses had returned good capillary refill returned to all toes the patient was now transferred to the recovery room [facility] after being extubated in stable condition. There were no apparent perioperative complications Counts repoted as correct: Yes DEYA HURTADO MD Jul 10, 2025 16:54
[2025-07-10] MEDS: morphine 4 MG/ML inj SYRINge IV PRN (16:57)
[2025-07-10] MEDS ORDERED: fentaNYL/PF 50MCG/1 ML 2ML syringe IV PRN (17:05)
[2025-07-10] MEDS: fentaNYL/PF 50MCG/1 ML 2ML syringe IV PRN (17:12)
[2025-07-10] MEDS: diazepam inj 5 MG/ML inj. IV STA (17:38)
[2025-07-10] MEDS: vancomycin inj. 750 MG in normal saline 250ml IV soln 250 ML IV SCH (18:09)
[2025-07-11 02:00] VITALS: BP 97/64; PULSE 78; RESP 22; TEMP 98; O2SAT 98
[2025-07-11 07:12] VITALS: BP 108/76; PULSE 82; RESP 18; TEMP 97.6; O2SAT 98
[2025-07-11 08:09] VITALS: RESP 18
[2025-07-11 10:48] LABS: MEAN PLATELET VOLUME 7.2 FL (7.4-10.4); RED CELL DISTRIBUTION WIDTH 13.6 % (11.5-14.5)
[2025-07-11 11:00] LABS: CREATININE 0.68 MG/DL (0.60-1.10); TOTAL CARBON DIOXIDE 27.8 MMOL/L (24-32); eCRCL 83 ML/MIN; eGFR > 90 ML/MIN
[2025-07-11 11:22] VITALS: BP 103/63; PULSE 86; RESP 14; TEMP 98.2; O2SAT 96
[2025-07-11] MEDS: VANCOMYCIN LEVEL IV ONE (16:00)
--- NOTE | 2025-07-11 17:24 | PROGRESS NOTE ---
Daily Progress Note Providers to CC ~ Antibiotic Timeout Antibiotic Ordered?: Yes Subjective Patient is seen in his room his swelling and pain over right old lower extremities much better today . s/p I and D abscess right leg application of wound VAC done by Dr. Mckeon Objective Vital Signs Date Time Temp Pulse Resp B/P (MAP) Pulse Ox O2 Delivery O2 Flow Rate FiO2 07/11/25 17:15 16 07/11/25 11:22 98.2 86 103/63 (76) 96 07/11/25 08:09 Room Air 0.0 Result Diagram: 07/11/25 1022 07/11/25 1022 General-patient not in any acute distress, alert awake oriented, chronically ill-appearing, looks comfortable HEENT-atraumatic normocephalic, neck supple without elevated JVD, No lymphadenopathy bilaterally. Eyes-no icterus or pallor seen in eyes Chest-clear to auscultation bilaterally, breathing nonlabored no tachypnea, no wheezing, no crepitation, no crackles. Heart-S1-S2 normal, regular heart rate no murmur Abdomen bowel sounds positive on auscultation, soft nondistended nontender no guarding, no rigidity Skin no active skin rash, signs of right lower extremity cellulitis Neurology-grossly intact, nonfocal alert awake oriented Extremity- no pedal edema able to move all 4 extremities, signs of healing right lower extremity cellulitis Psychiatry - patient is not confused or agitated cooperated during physical examination Coagulation Studies Laboratory Tests Test 07/05/25 20:13 Prothrombin Time 12.4 SECONDS (9.0-12.0) H INR International Normalized Ratio 1.2 INR Activated Partial Thromboplast Time 43 SECONDS (22-32) H D-Dimer 3.51 MG/L FEU (0-0.50) H D-Dimer Comment Coagulation Comments Problem\Assessment\Plan Cellulitis of the right lower limb: Possible superimposed popliteal cyst rupture Pedal pulses intact. Diminished sensation Mild leukocytosis secondary to above. Lactic acid normal. Protocol mildly elevated at 0.8 CPK and urine negative for rhabdomyolysis Blood cultures negative so far , will follow. History of MRSA; stopped cefepime and will continue vancomycin. D-dimer positive, elevated PT in APTT. Venous ultrasound ruled out DVT, no signs of pulmonary embolism Pain management with Tylenol, Wound Care to continue CT of right lower extremity ordered and results discussed with Dr. Mckeon incident response specialist on-call who is willing to evaluate the patient and wants to keep patient NPO after midnight s/p I and D abscess right leg application of wound VAC done by Dr. Mckeon on 07/10/25 Acute kidney injury: resolved Likely secondary to vasomotor nephropathy IVF with a rate of 100 cc/hour UA negative for proteinuria. UTox positive for methamphetamine Spot urine studies in line with prerenal injury will closely monitor BMP I&O monitoring Hyponatremia: POA- resolved Mild; asymptomatic Likely hypovolemic hyponatremia Follow spot urine studies Continue IVF at a rate of 100 cc/hour Monitor BMP Alcohol use disorder: Nicotine use disorder: Methamphetamine use disorder Homelessness On withdrawal protocol Nicotine patch 14 mg ordered counselled regarding the need to quit smoking and the high-risk behavior explained Substance use navigator and director social welfare consulted Anemia: Likely dimorphic Normocytic and hypochromic Elevated ferritin with low iron; awaiting transferrin. Anemia likely secondary to nutritional/chronic disease Ferritin highly elevated to 1492 Expect decrease in hemoglobin after IV hydration will Follow iron studies and vitamin B12 Severe malnutrition: BMI 14.4 Likely secondary to poor p.o. intake Continue renal diet Lines: PIV Code status: DNR Diet: Renal DVT prophylaxis: Heparin Patient's current condition is guarded I will continue to follow patient in AM . Continue physical therapy daily. Date of Service: Jul 11, 2025 Billing Provider: JOSE OCASIO MD Common Visit Codes: [id number] INP/OBS CARE(HIGH) JOSE OCASIO MD Jul 11, 2025 17:24
[2025-07-11 18:50] VITALS: BP 100/62; PULSE 88; RESP 18; TEMP 98; O2SAT 98
[2025-07-11 22:00] VITALS: BP 114/68; PULSE 89; RESP 20; TEMP 98.6; O2SAT 96
[2025-07-12 07:00] VITALS: BP 109/72; PULSE 75; RESP 18; TEMP 98; O2SAT 98
[2025-07-12] MEDS ORDERED: VANCOMYCIN 1.75GM/WATER FOR INJ (PEG) 350 ML IVPB IV SCH (09:00)
[2025-07-12 09:29] VITALS: RESP 18
[2025-07-12 09:41] LABS: MEAN PLATELET VOLUME 6.9 FL (7.4-10.4); RED CELL DISTRIBUTION WIDTH 13.7 % (11.5-14.5)
[2025-07-12 09:52] LABS: CREATININE 0.64 MG/DL (0.60-1.10); TOTAL CARBON DIOXIDE 24.9 MMOL/L (24-32); eCRCL 88 ML/MIN; eGFR > 90 ML/MIN
[2025-07-12] MEDS: VANCOMYCIN 500MG/WATER FOR INJ (PEG) PREMIX 100 ML IV SCH (09:57)
[2025-07-12 18:00] VITALS: BP 119/72; PULSE 86; RESP 21; TEMP 97.1; O2SAT 98
[2025-07-12 20:00] VITALS: RESP 18; O2SAT 98
--- NOTE | 2025-07-12 20:00 | PROGRESS NOTE ---
Daily Progress Note Providers to CC ~ Antibiotic Timeout Antibiotic Ordered?: Yes Subjective Patient is seen in his room right lower extremity cellulitis healing well wound VAC in place . Patient needs physical therapy evaluation in a.m. Objective Vital Signs Date Time Temp Pulse Resp B/P (MAP) Pulse Ox O2 Delivery O2 Flow Rate FiO2 07/12/25 17:26 18 07/12/25 09:29 Room Air 0.0 07/12/25 07:00 98.0 75 109/72 (84) 98 07/11/25 22:00 21 Result Diagram: 07/12/25 0919 07/12/25 0915 General-patient not in any acute distress, alert awake oriented, chronically ill-appearing, looks comfortable HEENT-atraumatic normocephalic, neck supple without elevated JVD, No lymphadenopathy bilaterally. Eyes-no icterus or pallor seen in eyes Chest-clear to auscultation bilaterally, breathing nonlabored no tachypnea, no wheezing, no crepitation, no crackles. Heart-S1-S2 normal, regular heart rate no murmur Abdomen bowel sounds positive on auscultation, soft nondistended nontender no guarding, no rigidity Skin no active skin rash, signs of right lower extremity cellulitis Neurology-grossly intact, nonfocal alert awake oriented Extremity- no pedal edema able to move all 4 extremities, signs of healing right lower extremity cellulitis Psychiatry - patient is not confused or agitated cooperated during physical examination Coagulation Studies Laboratory Tests Test 07/05/25 20:13 Prothrombin Time 12.4 SECONDS (9.0-12.0) H INR International Normalized Ratio 1.2 INR Activated Partial Thromboplast Time 43 SECONDS (22-32) H D-Dimer 3.51 MG/L FEU (0-0.50) H D-Dimer Comment Coagulation Comments Problem\Assessment\Plan Cellulitis of the right lower limb: Possible superimposed popliteal cyst rupture Pedal pulses intact. Diminished sensation Mild leukocytosis secondary to above. Lactic acid normal. Protocol mildly elevated at 0.8 CPK and urine negative for rhabdomyolysis Blood cultures negative so far , will follow. History of MRSA; stopped cefepime and will continue vancomycin. D-dimer positive, elevated PT in APTT. Venous ultrasound ruled out DVT, no signs of pulmonary embolism Pain management with Tylenol, Wound Care to continue CT of right lower extremity ordered and results discussed with Dr. Mckeon claim processing specialist on-call who is willing to evaluate the patient and wants to keep patient NPO after midnight s/p I and D abscess right leg application of wound VAC done by Dr. Mckeon on 07/10/25 Acute kidney injury: resolved Likely secondary to vasomotor nephropathy IVF with a rate of 100 cc/hour UA negative for proteinuria. UTox positive for methamphetamine Spot urine studies in line with prerenal injury will closely monitor BMP I&O monitoring Hyponatremia: POA- resolved Mild; asymptomatic Likely hypovolemic hyponatremia Follow spot urine studies Continue IVF at a rate of 100 cc/hour Monitor BMP Alcohol use disorder: Nicotine use disorder: Methamphetamine use disorder Homelessness On withdrawal protocol Nicotine patch 14 mg ordered counselled regarding the need to quit smoking and the high-risk behavior explained Substance use navigator and social studies teacher consulted Anemia: Likely dimorphic Normocytic and hypochromic Elevated ferritin with low iron; awaiting transferrin. Anemia likely secondary to nutritional/chronic disease Ferritin highly elevated to 1492 Expect decrease in hemoglobin after IV hydration will Follow iron studies and vitamin B12 Severe malnutrition: BMI 14.4 Likely secondary to poor p.o. intake Continue renal diet Lines: PIV Code status: DNR Diet: Renal DVT prophylaxis: Heparin Patient's current condition is guarded I will continue to follow patient in AM . Continue physical therapy daily. Date of Service: Jul 12, 2025 Billing Provider: JOSE OCASIO MD Common Visit Codes: [id number] INP/OBS CARE(HIGH) JOSE OCASIO MD Jul 12, 2025 20:00
[2025-07-12 22:00] VITALS: BP 129/74; PULSE 63; RESP 16; TEMP 97.6; O2SAT 96
[2025-07-13 05:00] VITALS: O2SAT 94
[2025-07-13 06:00] VITALS: BP 94/64; PULSE 83; RESP 16; TEMP 97.7; O2SAT 96
[2025-07-13 08:00] VITALS: RESP 16; O2SAT 96
[2025-07-13 10:11] LABS: MEAN PLATELET VOLUME 7.2 FL (7.4-10.4); RED CELL DISTRIBUTION WIDTH 13.4 % (11.5-14.5)
[2025-07-13 10:27] LABS: CREATININE 0.74 MG/DL (0.60-1.10); TOTAL CARBON DIOXIDE 29.1 MMOL/L (24-32); eCRCL 77 ML/MIN; eGFR > 90 ML/MIN
[2025-07-13] MEDS: VANCOMYCIN LEVEL IV ONE (11:29)
[2025-07-13 18:00] VITALS: BP 115/62; PULSE 85; RESP 18; TEMP 97.6; O2SAT 99
[2025-07-13 19:50] VITALS: RESP 18; O2SAT 99
--- NOTE | 2025-07-13 20:05 | PROGRESS NOTE ---
Daily Progress Note Providers to CC ~ Antibiotic Timeout Antibiotic Ordered?: Yes Subjective Patient was seen in his room feeling better he was evaluated by Dr. Mckeon who wants to continue wound VAC for now. Objective Vital Signs Date Time Temp Pulse Resp B/P (MAP) Pulse Ox O2 Delivery O2 Flow Rate FiO2 07/13/25 08:11 18 07/13/25 08:00 96 Room Air 07/13/25 06:00 97.7 83 94/64 (74) 07/13/25 05:00 0 21 Result Diagram: 07/13/25 0911 07/13/25 0911 General-patient not in any acute distress, alert awake oriented, chronically ill-appearing, looks comfortable HEENT-atraumatic normocephalic, neck supple without elevated JVD, No lymphadenopathy bilaterally. Eyes-no icterus or pallor seen in eyes Chest-clear to auscultation bilaterally, breathing nonlabored no tachypnea, no wheezing, no crepitation, no crackles. Heart-S1-S2 normal, regular heart rate no murmur Abdomen bowel sounds positive on auscultation, soft nondistended nontender no guarding, no rigidity Skin no active skin rash, signs of right lower extremity cellulitis Neurology-grossly intact, nonfocal alert awake oriented Extremity- no pedal edema able to move all 4 extremities, signs of healing right lower extremity cellulitis Psychiatry - patient is not confused or agitated cooperated during physical examination Coagulation Studies Laboratory Tests Test 07/05/25 20:13 Prothrombin Time 12.4 SECONDS (9.0-12.0) H INR International Normalized Ratio 1.2 INR Activated Partial Thromboplast Time 43 SECONDS (22-32) H D-Dimer 3.51 MG/L FEU (0-0.50) H D-Dimer Comment Coagulation Comments Problem\Assessment\Plan Cellulitis of the right lower limb: Possible superimposed popliteal cyst rupture Pedal pulses intact. Diminished sensation Mild leukocytosis secondary to above. Lactic acid normal. Protocol mildly elevated at 0.8 CPK and urine negative for rhabdomyolysis Blood cultures negative so far , will follow. History of MRSA; stopped cefepime and will continue vancomycin. D-dimer positive, elevated PT in APTT. Venous ultrasound ruled out DVT, no signs of pulmonary embolism Pain management with Tylenol, Wound Care to continue CT of right lower extremity ordered and results discussed with Dr. Mckeon museum informatics specialist on-call who is willing to evaluate the patient and wants to keep patient NPO after midnight s/p I and D abscess right leg application of wound VAC done by Dr. Mckeon on 07/10/25 Acute kidney injury: resolved Likely secondary to vasomotor nephropathy IVF with a rate of 100 cc/hour UA negative for proteinuria. UTox positive for methamphetamine Spot urine studies in line with prerenal injury will closely monitor BMP I&O monitoring Hyponatremia: POA- resolved Mild; asymptomatic Likely hypovolemic hyponatremia Follow spot urine studies Continue IVF at a rate of 100 cc/hour Monitor BMP Alcohol use disorder: Nicotine use disorder: Methamphetamine use disorder Homelessness On withdrawal protocol Nicotine patch 14 mg ordered counselled regarding the need to quit smoking and the high-risk behavior explained Substance use navigator and social scientist consulted Anemia: Likely dimorphic Normocytic and hypochromic Elevated ferritin with low iron; awaiting transferrin. Anemia likely secondary to nutritional/chronic disease Ferritin highly elevated to 1492 Expect decrease in hemoglobin after IV hydration will Follow iron studies and vitamin B12 Severe malnutrition: BMI 14.4 Likely secondary to poor p.o. intake Continue renal diet Lines: PIV Code status: DNR Diet: Renal DVT prophylaxis: Heparin Patient's current condition is guarded I will continue to follow patient in AM . Continue physical therapy daily. Date of Service: Jul 13, 2025 Billing Provider: JOSE OCASIO MD Common Visit Codes: [id number] INP/OBS CARE(HIGH) JOSE OCASIO MD Jul 13, 2025 20:05
[2025-07-13] MEDS: vancomycin inj. 750 MG in normal saline 250ml IV soln 250 ML IV SCH (20:37)
[2025-07-13 22:00] VITALS: BP 115/71; PULSE 71; RESP 17; TEMP 97.9; O2SAT 96
[2025-07-14 07:03] VITALS: BP 114/71; PULSE 66; RESP 18; TEMP 97.9; O2SAT 100
[2025-07-14 07:20] VITALS: RESP 18; O2SAT 100
[2025-07-14 11:50] VITALS: BP 106/61; PULSE 90; RESP 17; TEMP 97.1; O2SAT 97
[2025-07-14 11:53] LABS: MEAN PLATELET VOLUME 7.3 FL (7.4-10.4); RED CELL DISTRIBUTION WIDTH 13.6 % (11.5-14.5)
[2025-07-14 12:04] LABS: CREATININE 0.61 MG/DL (0.60-1.10); TOTAL CARBON DIOXIDE 29.2 MMOL/L (24-32); eCRCL 93 ML/MIN; eGFR > 90 ML/MIN
--- NOTE | 2025-07-14 17:25 | PROGRESS NOTE ---
Daily Progress Note Providers to CC ~ Antibiotic Timeout Antibiotic Ordered?: Yes Subjective Patient was seen in his room feeling better . Dr. Mckeon we will take the patient to OR tomorrow for closure of the wound please keep patient NPO and no blood thinner after midnight Objective Vital Signs Date Time Temp Pulse Resp B/P (MAP) Pulse Ox O2 Delivery O2 Flow Rate FiO2 07/14/25 11:50 97.1 90 17 106/61 (76) 97 Room Air 07/13/25 19:50 0.0 07/13/25 05:00 21 Result Diagram: 07/14/25 1119 07/14/25 1119 General-patient not in any acute distress, alert awake oriented, chronically ill-appearing, looks comfortable HEENT-atraumatic normocephalic, neck supple without elevated JVD, No lymphadenopathy bilaterally. Eyes-no icterus or pallor seen in eyes Chest-clear to auscultation bilaterally, breathing nonlabored no tachypnea, no wheezing, no crepitation, no crackles. Heart-S1-S2 normal, regular heart rate no murmur Abdomen bowel sounds positive on auscultation, soft nondistended nontender no guarding, no rigidity Skin no active skin rash, signs of right lower extremity cellulitis Neurology-grossly intact, nonfocal alert awake oriented Extremity- no pedal edema able to move all 4 extremities, signs of healing right lower extremity cellulitis Psychiatry - patient is not confused or agitated cooperated during physical examination Coagulation Studies Laboratory Tests Test 07/05/25 20:13 Prothrombin Time 12.4 SECONDS (9.0-12.0) H INR International Normalized Ratio 1.2 INR Activated Partial Thromboplast Time 43 SECONDS (22-32) H D-Dimer 3.51 MG/L FEU (0-0.50) H D-Dimer Comment Coagulation Comments Problem\Assessment\Plan Cellulitis of the right lower limb: Possible superimposed popliteal cyst rupture Pedal pulses intact. Diminished sensation Mild leukocytosis secondary to above. Lactic acid normal. Protocol mildly elevated at 0.8 CPK and urine negative for rhabdomyolysis Blood cultures negative so far , will follow. History of MRSA; stopped cefepime and will continue vancomycin. D-dimer positive, elevated PT in APTT. Venous ultrasound ruled out DVT, no signs of pulmonary embolism Pain management with Tylenol, Wound Care to continue CT of right lower extremity ordered and results discussed with Dr. Mckeon cash processing specialist on-call who is willing to evaluate the patient and wants to keep patient NPO after midnight s/p I and D abscess right leg application of wound VAC done by Dr. Mckeon on 07/10/25 Acute kidney injury: resolved Likely secondary to vasomotor nephropathy IVF with a rate of 100 cc/hour UA negative for proteinuria. UTox positive for methamphetamine Spot urine studies in line with prerenal injury will closely monitor BMP I&O monitoring Hyponatremia: POA- resolved Mild; asymptomatic Likely hypovolemic hyponatremia Follow spot urine studies Continue IVF at a rate of 100 cc/hour Monitor BMP Alcohol use disorder: Nicotine use disorder: Methamphetamine use disorder Homelessness On withdrawal protocol Nicotine patch 14 mg ordered counselled regarding the need to quit smoking and the high-risk behavior explained Substance use navigator and social and political studies professor consulted Anemia: Likely dimorphic Normocytic and hypochromic Elevated ferritin with low iron; awaiting transferrin. Anemia likely secondary to nutritional/chronic disease Ferritin highly elevated to 1492 Expect decrease in hemoglobin after IV hydration will Follow iron studies and vitamin B12 Severe malnutrition: BMI 14.4 Likely secondary to poor p.o. intake Continue renal diet Lines: PIV Code status: DNR Diet: Renal DVT prophylaxis: Heparin Patient's current condition is guarded I will continue to follow patient in AM . Continue physical therapy daily. Date of Service: Jul 14, 2025 Billing Provider: JOSE OCASIO MD Common Visit Codes: [id number] INP/OBS CARE(HIGH) JOSE OCASIO MD Jul 14, 2025 17:25
[2025-07-14 18:00] VITALS: BP 115/76; PULSE 84; RESP 18; TEMP 97.5; O2SAT 97
[2025-07-14] MEDS: VANCOMYCIN LEVEL IV ONE (19:03)
[2025-07-14 20:00] VITALS: RESP 16
[2025-07-14 22:00] VITALS: BP 100/56; PULSE 91; RESP 18; TEMP 98.5; O2SAT 95
[2025-07-15] VITALS (21 sets, daily range): BP systolic 90–118; BP diastolic 51–77; PULSE 60–89; RESP 15–29; TEMP 97.5–98.3; O2SAT 93–100
[2025-07-15 09:57] LABS: MEAN PLATELET VOLUME 7.3 FL (7.4-10.4); RED CELL DISTRIBUTION WIDTH 13.5 % (11.5-14.5)
[2025-07-15 10:08] LABS: INR 1.1 INR
[2025-07-15 10:15] LABS: CREATININE 0.70 MG/DL (0.60-1.10); TOTAL CARBON DIOXIDE 31.2 MMOL/L (24-32); eCRCL 81 ML/MIN; eGFR > 90 ML/MIN
[2025-07-15] MEDS ORDERED: bacitracin 15gm ointment TP ONE (10:55)
[2025-07-15] MEDS ORDERED: BUPIVAcaine 0.5% inj/PF 30 ML ONE (10:56)
[2025-07-15] MEDS ORDERED: vancomycin 1,000mg inj ONE (11:43)
[2025-07-15] MEDS ORDERED: fentaNYL/PF 50MCG/1 ML 2ML syringe ONE (12:41)
[2025-07-15] MEDS ORDERED: midazolam 1 mg/ML 2ml injection ONE (12:43)
[2025-07-15] MEDS ORDERED: propofol inj 20 ML IV ONE (12:43)
[2025-07-15] MEDS: ringers solution, lacted 1,000 ML IV SCH (12:50)
[2025-07-15] MEDS ORDERED: HYDROmorphone/PF 0.2 MG/ML SYRINGE IV PRN ×2 (12:50)
[2025-07-15] MEDS ORDERED: morphine 4 MG/ML inj SYRINge IV PRN (12:50)
[2025-07-15] MEDS ORDERED: hydrALAZINE 20mg/ml inj. IV PRN (12:50)
[2025-07-15] MEDS ORDERED: labetalol 20mg/4ml (5mg/ml) syringe IV PRN (12:50)
[2025-07-15] MEDS ORDERED: ondansetron/PF 4mg/2ml inj IV PRN (12:50)
[2025-07-15] MEDS ORDERED: dexamethasone sod phosphate 4mg/ml inj. ONE (13:04)
[2025-07-15] MEDS: BUPIVAcaine 0.5% inj/PF 30 ml vial IJ ONE (13:17)
[2025-07-15] MEDS ORDERED: ondansetron/PF 4mg/2ml inj ONE (13:25)
--- NOTE | 2025-07-15 13:48 | OPERATIVE REPORT ---
Operative Report Providers to ~ Date of Procedure: Jul 15, 2025 Pre-Operative Diagnosis: Abscess right leg Post-Operative Diagnosis SAME as PRE-Op Procedure Performed I&D right leg placement of Hemovac placement of antibiotic vancomycin powder delayed primary closure right leg. Surgeon: Deya Hurtado MD [employer] Chief Clerk Nine Anesthesiologist: Isaac Stoddard Type of Anesthesia: General Findings: Status post I&D right posterior calf abscess with no ongoing infection healthy viable tissue skin edges and intact muscular system without evidence of ischemia or necrosis. Complications None Prosthetics\Implants used: 1 g of vancomycin powder placed. One medium Hemovac placed exiting distally Estimated Blood Loss: Less than 50 cc Specimen Removed: None Description of Procedure: Patient was taken to the operating room on a elective basis after his wound VAC drainage minimize. He ended up having a sterile abscess of the brought out no cultures were responded to IV antibiotic medication. I obtained informed consent educating the patient on the procedure and the need for Hemovac drain postoperatively internal drainage output was minimize. I signed his extremity once the informed consents were obtained discussing the indications benefits potential limitations and complications of the procedure. Once in the operating room the patient was given a general anesthetic after being placed in the OR table in the supine position left leg was placed in an SCD device the right leg was placed in a well-padded upper thigh tourniquet and prepped was accomplished with Betadine with a mean of the right leg lower extremity from above the knee all the way down to his toes. Surgical time-out was taken per protocol and the case was begun. Esmarch was used for exsanguination of the leg had been elevated tourniquet was insufflated. The wound was inspected and no residual infection was apparent there were no loculations or pockets of exudate the muscle bellies were pink and healthy and retracted room electrocautery skin edges were healthy without any evidence of ischemic changes were necrosis. There was plenty of loose skin to do a primary closure without tension. 1 g L of antiseptic solution was used Aricept prior to closure 1 g of vancomycin powder was sprinkled throughout the incision and wound area. A medium being Hemovac was placed into the wound which measured approximately 9 in in length and exited out distally and slightly posteriorly to close suction. Closure was accomplished with interrupted sutures of 2-0 Vicryl buried in the suture knot. Skin was closed with skin skylar active code was used for the skin as well as the Telfa dressing 4x4s dressings Kerlix dressing and to Reese wraps from the toes up to the knee. Tourniquet had been released good distal pulses returned to the foot with good capillary refill to all toes. The Hemovac was secured with op-site dressings at the incision in the each junction of the transit to close suction canister. Patient was now extubated and taken to recovery room in stable condition there were no apparent perioperative complications needle and sponge count was reported to be correct DEYA HURTADO MD Jul 15, 2025 13:48
--- NOTE | 2025-07-15 19:51 | PROGRESS NOTE ---
Daily Progress Note Providers to CC ~ Antibiotic Timeout Antibiotic Ordered?: Yes Subjective Dr. Mckeon took the patient back to the OR this afternoon for change in Hemovac and antibiotic powder placement Objective Vital Signs Date Time Temp Pulse Resp B/P (MAP) Pulse Ox O2 Delivery O2 Flow Rate FiO2 07/15/25 18:00 97.5 66 17 97 Room Air 07/15/25 18:00 90/77 (81) 07/15/25 14:30 0.0 07/14/25 20:00 21 Result Diagram: 07/15/25 0916 07/15/25 0916 Gen. No acute distress alert and oriented 4 Lungs clear to ascultation bilaterally, no wheezes rales or rhonchi appreciated Heart normal sinus rhythm no murmurs rubs or clicks noted Abdomen soft nontender bowel sounds are normoactive Lower extremities no clubbing cyanosis, nor edema appreciated bilaterally Coagulation Studies Laboratory Tests Test 07/05/25 20:13 07/15/25 09:16 Activated Partial Thromboplast Time 43 SECONDS (22-32) H D-Dimer 3.51 MG/L FEU (0-0.50) H D-Dimer Comment Prothrombin Time 10.9 SECONDS (9.0-12.0) INR International Normalized Ratio 1.1 INR Coagulation Comments Problem\Assessment\Plan Cellulitis of the right lower limb: Possible superimposed popliteal cyst rupture Pedal pulses intact. Diminished sensation Mild leukocytosis secondary to above. Lactic acid normal. Protocol mildly elevated at 0.8 CPK and urine negative for rhabdomyolysis Blood cultures negative so far , will follow. History of MRSA; stopped cefepime and will continue vancomycin. D-dimer positive, elevated PT in APTT. Venous ultrasound ruled out DVT, no signs of pulmonary embolism Pain management with Tylenol, Wound Care to continue CT of right lower extremity ordered and results discussed with Dr. Mckeon forestry support specialist on-call who is willing to evaluate the patient and wants to keep patient NPO after midnight s/p I and D abscess right leg application of wound VAC done by Dr. Mckeon on 07/10/2507/15 Dr. Mckeon took the patient back to the OR today for changing the Hemovac and antibiotic powder placement Acute kidney injury: resolved Possibly secondary to vasomotor nephropathy IVF with a rate of 100 cc/hour UA negative for proteinuria. UTox positive for methamphetamine Spot urine studies in line with prerenal injury will closely monitor BMP I&O monitoring Hyponatremia: POA- resolved Mild; asymptomatic Likely hypovolemic hyponatremia Follow spot urine studies Continue IVF at a rate of 100 cc/hour Monitor BMP Alcohol use disorder: Nicotine use disorder: Methamphetamine use disorder Homelessness On withdrawal protocol Nicotine patch 14 mg ordered counselled regarding the need to quit smoking and the high-risk behavior explained Substance use navigator and clinical social worker consulted Anemia: Likely dimorphic Normocytic and hypochromic Elevated ferritin with low iron; awaiting transferrin. Anemia likely secondary to nutritional/chronic disease Ferritin highly elevated to 1492 Expect decrease in hemoglobin after IV hydration Hemoglobin has stabilized Severe malnutrition: BMI 14.4 Likely secondary to poor p.o. intake Continue renal diet Lines: PIV Code status: DNR Diet: Renal DVT prophylaxis: Heparin . Date of Service: Jul 15, 2025 Billing Provider: IFEOMA CARNEY DO Common Visit Codes: [id number] INP/OBS CARE(HIGH) IFEOMA CARNEY DO Jul 15, 2025 19:51
[2025-07-16 06:00] VITALS: BP 99/63; PULSE 75; RESP 16; TEMP 97.5; O2SAT 96
[2025-07-16 10:00] VITALS: BP 98/53; PULSE 97; RESP 18; TEMP 97.9; O2SAT 91
[2025-07-16 10:52] LABS: MEAN PLATELET VOLUME 7.2 FL (7.4-10.4); RED CELL DISTRIBUTION WIDTH 13.6 % (11.5-14.5)
[2025-07-16 11:26] LABS: CREATININE 0.71 MG/DL (0.60-1.10); TOTAL CARBON DIOXIDE 26.1 MMOL/L (24-32); eCRCL 80 ML/MIN; eGFR > 90 ML/MIN
[2025-07-16 18:00] VITALS: BP 104/59; PULSE 84; RESP 16; TEMP 98.1; O2SAT 97
--- NOTE | 2025-07-16 21:32 | PROGRESS NOTE ---
Daily Progress Note Providers to CC ~ Antibiotic Timeout Antibiotic Ordered?: Yes Subjective The patient is white blood cell count continues to up trend- I did speak with Dr. Mckeon who stated that has no further surgical intervention required in his far as he is concerned the patient to be discharged once the drain is removed and wound care removed the patient's drained today. The patient has no acute complaints other than wanting to be discharged Objective Vital Signs Date Time Temp Pulse Resp B/P (MAP) Pulse Ox O2 Delivery O2 Flow Rate FiO2 07/16/25 10:52 Room Air 07/16/25 10:00 97.9 97 18 98/53 (68) 91 07/15/25 14:30 0.0 07/14/25 20:00 21 Result Diagram: 07/16/25 0951 07/16/25 0951 Gen. No acute distress alert and oriented 4 Lungs clear to ascultation bilaterally, no wheezes rales or rhonchi appreciated Heart normal sinus rhythm no murmurs rubs or clicks noted Abdomen soft nontender bowel sounds are normoactive Lower extremities no clubbing cyanosis, nor edema appreciated bilaterally, dressing is in place in the right lower extremity Coagulation Studies Laboratory Tests Test 07/05/25 20:13 07/15/25 09:16 Activated Partial Thromboplast Time 43 SECONDS (22-32) H D-Dimer 3.51 MG/L FEU (0-0.50) H D-Dimer Comment Prothrombin Time 10.9 SECONDS (9.0-12.0) INR International Normalized Ratio 1.1 INR Coagulation Comments Problem\Assessment\Plan Cellulitis of the right lower limb: Possible superimposed popliteal cyst rupture Pedal pulses intact. Diminished sensation Mild leukocytosis secondary to above. Lactic acid normal. Protocol mildly elevated at 0.8 CPK and urine negative for rhabdomyolysis Blood cultures negative so far , will follow. History of MRSA; stopped cefepime and will continue vancomycin. D-dimer positive, elevated PT in APTT. Venous ultrasound ruled out DVT, no signs of pulmonary embolism Pain management with Tylenol, Wound Care to continue CT of right lower extremity ordered and results discussed with Dr. Mckeon performance specialist on-call who is willing to evaluate the patient and wants to keep patient NPO after midnight s/p I and D abscess right leg application of wound VAC done by Dr. Mckeon on 07/10/2507/15 Dr. Mckeon took the patient back to the OR today for changing the Hemovac and antibiotic powder placement 07/16 drain was removed by wound care today Acute kidney injury: resolved Possibly secondary to vasomotor nephropathy IVF with a rate of 100 cc/hour UA negative for proteinuria. UTox positive for methamphetamine Spot urine studies in line with prerenal injury will closely monitor BMP I&O monitoring 07/16 resolved Hyponatremia: POA- resolved Mild; asymptomatic Likely hypovolemic hyponatremia Follow spot urine studies Continue IVF at a rate of 100 cc/hour Monitor BMP 07/16 resolved Alcohol use disorder: Nicotine use disorder: Methamphetamine use disorder Homelessness On withdrawal protocol Nicotine patch 14 mg ordered counselled regarding the need to quit smoking and the high-risk behavior explained Substance use navigator and health social work professor consulted Anemia: Likely dimorphic Normocytic and hypochromic Elevated ferritin with low iron; awaiting transferrin. Anemia likely secondary to nutritional/chronic disease Ferritin highly elevated to 1492 Expect decrease in hemoglobin after IV hydration Hemoglobin has stabilized Severe malnutrition: BMI 14.4 Likely secondary to poor p.o. intake Continue renal diet Lines: PIV Code status: DNR Diet: Renal DVT prophylaxis: Heparin Disposition: Poultry Veterinarian is working on obtaining a room for the patient at [facility] Date of Service: Jul 16, 2025 Billing Provider: IFEOMA CARNEY DO Common Visit Codes: [id number] INP/OBS CARE(HIGH) IFEOMA CARNEY DO Jul 16, 2025 21:32
[2025-07-16 22:00] VITALS: BP 103/56; PULSE 70; RESP 16; TEMP 98.6; O2SAT 98
[2025-07-17 06:00] VITALS: BP 96/54; PULSE 71; RESP 20; TEMP 97.9; O2SAT 97
[2025-07-17 06:07] LABS: MEAN PLATELET VOLUME 6.9 FL (7.4-10.4); RED CELL DISTRIBUTION WIDTH 13.6 % (11.5-14.5)
[2025-07-17 06:27] LABS: CREATININE 0.99 MG/DL (0.60-1.10); TOTAL CARBON DIOXIDE 30.2 MMOL/L (24-32); eCRCL 57 ML/MIN; eGFR 77 ML/MIN
[2025-07-17 10:00] VITALS: BP 105/54; PULSE 91; RESP 16; TEMP 99.2; O2SAT 97
[2025-07-17 18:00] VITALS: BP_SYST 100; BP_SYST 106; BP_DIAS 58; BP_DIAS 71; PULSE 82; PULSE 85; RESP 20; RESP 24; TEMP 98.3; O2SAT 97
[2025-07-17 20:00] VITALS: RESP 20; O2SAT 97
--- NOTE | 2025-07-17 21:18 | PROGRESS NOTE ---
Daily Progress Note Providers to CC ~ Antibiotic Timeout Antibiotic Ordered?: Yes Subjective The patient is resting in bed comfortably is awaiting social work specialist to assist with a apartment Objective Vital Signs Date Time Temp Pulse Resp B/P (MAP) Pulse Ox O2 Delivery O2 Flow Rate FiO2 07/17/25 15:14 12 07/17/25 10:00 99.2 91 105/54 (71) 97 Room Air 07/15/25 14:30 0.0 07/14/25 20:00 21 Result Diagram: 07/17/25 0541 07/17/25 0541 Gen. No acute distress alert and oriented 4 Lungs clear to ascultation bilaterally, no wheezes rales or rhonchi appreciated Heart normal sinus rhythm no murmurs rubs or clicks noted Abdomen soft nontender bowel sounds are normoactive Lower extremities no clubbing cyanosis, nor edema appreciated bilaterally, dressing is in place in the right lower extremity Coagulation Studies Laboratory Tests Test 07/05/25 20:13 07/15/25 09:16 Activated Partial Thromboplast Time 43 SECONDS (22-32) H D-Dimer 3.51 MG/L FEU (0-0.50) H D-Dimer Comment Prothrombin Time 10.9 SECONDS (9.0-12.0) INR International Normalized Ratio 1.1 INR Coagulation Comments Problem\Assessment\Plan Cellulitis of the right lower limb: Possible superimposed popliteal cyst rupture Pedal pulses intact. Diminished sensation Mild leukocytosis secondary to above. Lactic acid normal. Protocol mildly elevated at 0.8 CPK and urine negative for rhabdomyolysis Blood cultures negative so far , will follow. History of MRSA; stopped cefepime and will continue vancomycin. D-dimer positive, elevated PT in APTT. Venous ultrasound ruled out DVT, no signs of pulmonary embolism Pain management with Tylenol, Wound Care to continue CT of right lower extremity ordered and results discussed with Dr. Mckeon foreclosure specialist on-call who is willing to evaluate the patient and wants to keep patient NPO after midnight s/p I and D abscess right leg application of wound VAC done by Dr. Mckeon on 07/10/2507/15 Dr. Mckeon took the patient back to the OR today for changing the Hemovac and antibiotic powder placement 07/16 drain was removed by wound care today 07/17 stable Acute kidney injury: resolved Possibly secondary to vasomotor nephropathy IVF with a rate of 100 cc/hour UA negative for proteinuria. UTox positive for methamphetamine Spot urine studies in line with prerenal injury will closely monitor BMP I&O monitoring 07/16 resolved Hyponatremia: POA- resolved Mild; asymptomatic Likely hypovolemic hyponatremia Follow spot urine studies Continue IVF at a rate of 100 cc/hour Monitor BMP 07/16 resolved Alcohol use disorder: Nicotine use disorder: Methamphetamine use disorder Homelessness On withdrawal protocol Nicotine patch 14 mg ordered counselled regarding the need to quit smoking and the high-risk behavior explained Substance use navigator and social work administrator consulted Anemia: Likely dimorphic Normocytic and hypochromic Elevated ferritin with low iron; awaiting transferrin. Anemia likely secondary to nutritional/chronic disease Ferritin highly elevated to 1492 Expect decrease in hemoglobin after IV hydration Hemoglobin has stabilized Severe malnutrition: BMI 14.4 Likely secondary to poor p.o. intake Continue renal diet Lines: PIV Code status: DNR Diet: Renal DVT prophylaxis: Heparin Disposition: Day Habilitation Supervisor is working on obtaining a room for the patient at [facility]. Date of Service: Jul 17, 2025 Billing Provider: IFEOMA CARNEY DO Common Visit Codes: [id number] INP/OBS CARE(HIGH) IFEOMA CARNEY DO Jul 17, 2025 21:18
[2025-07-17 22:00] VITALS: BP 100/58; PULSE 85; RESP 20; TEMP 98.3; O2SAT 97
[2025-07-18 06:00] VITALS: BP 105/68; PULSE 85; RESP 20; TEMP 98.3; O2SAT 95
[2025-07-18] MEDS: HYDROcodone/acetaminophen 5mg/325mg tablet PO PRN (07:42)
[2025-07-18 08:38] LABS: MEAN PLATELET VOLUME 7.4 FL (7.4-10.4); RED CELL DISTRIBUTION WIDTH 13.7 % (11.5-14.5)
[2025-07-18 09:01] LABS: CREATININE 0.77 MG/DL (0.60-1.10); TOTAL CARBON DIOXIDE 28.2 MMOL/L (24-32); eCRCL 74 ML/MIN; eGFR > 90 ML/MIN
[2025-07-18 10:00] VITALS: BP 131/53; PULSE 79; RESP 18; TEMP 98.3; O2SAT 95
[2025-07-18 18:00] VITALS: BP 103/72; PULSE 81; RESP 20; TEMP 98.3; O2SAT 96
--- NOTE | 2025-07-18 18:06 | PROGRESS NOTE ---
Daily Progress Note Providers to CC ~ Antibiotic Timeout Antibiotic Ordered?: Yes Subjective Patient has no acute complaints there were no beds available at [facility] however case management is going to work on placing the patient in LTAC the patient is homeless and states he would rather live in his streets then go to the [facility] as he does not like staying at the [facility] at all. The patient would not do well with his Objective Vital Signs Date Time Temp Pulse Resp B/P (MAP) Pulse Ox O2 Delivery O2 Flow Rate FiO2 07/18/25 12:12 18 07/18/25 10:00 98.3 79 131/53 (79) 95 Room Air 07/18/25 00:01 0.0 21 Result Diagram: 07/18/25 0657 07/18/25 0657 Gen. No acute distress alert and oriented 4 Lungs clear to ascultation bilaterally, no wheezes rales or rhonchi appreciated Heart normal sinus rhythm no murmurs rubs or clicks noted Abdomen soft nontender bowel sounds are normoactive Lower extremities no clubbing cyanosis, nor edema appreciated bilaterally, dressing is in place in the right lower extremity Coagulation Studies Laboratory Tests Test 07/05/25 20:13 07/15/25 09:16 Activated Partial Thromboplast Time 43 SECONDS (22-32) H D-Dimer 3.51 MG/L FEU (0-0.50) H D-Dimer Comment Prothrombin Time 10.9 SECONDS (9.0-12.0) INR International Normalized Ratio 1.1 INR Coagulation Comments Problem\Assessment\Plan Cellulitis of the right lower limb: Possible superimposed popliteal cyst rupture Pedal pulses intact. Diminished sensation Mild leukocytosis secondary to above. Lactic acid normal. Protocol mildly elevated at 0.8 CPK and urine negative for rhabdomyolysis Blood cultures negative so far , will follow. History of MRSA; stopped cefepime and will continue vancomycin. D-dimer positive, elevated PT in APTT. Venous ultrasound ruled out DVT, no signs of pulmonary embolism Pain management with Tylenol, Wound Care to continue CT of right lower extremity ordered and results discussed with Dr. Mckeon retail presentation specialist on-call who is willing to evaluate the patient and wants to keep patient NPO after midnight s/p I and D abscess right leg application of wound VAC done by Dr. Mckeon on 07/10/2507/15 Dr. Mckeon took the patient back to the OR today for changing the Hemovac and antibiotic powder placement 07/16 drain was removed by wound care today 07/17 stable 07/18 stable case management is working on placement in an LTAC as the patient would not do well homeless with a these wounds and would likely end up with severe sepsis. Acute kidney injury: resolved Possibly secondary to vasomotor nephropathy IVF with a rate of 100 cc/hour UA negative for proteinuria. UTox positive for methamphetamine Spot urine studies in line with prerenal injury will closely monitor BMP I&O monitoring 07/16 resolved Hyponatremia: POA- resolved Mild; asymptomatic Likely hypovolemic hyponatremia Follow spot urine studies Continue IVF at a rate of 100 cc/hour Monitor BMP 07/16 resolved Alcohol use disorder: Nicotine use disorder: Methamphetamine use disorder Homelessness On withdrawal protocol Nicotine patch 14 mg ordered counselled regarding the need to quit smoking and the high-risk behavior explained Substance use navigator and manager social responsibility consulted Anemia: Likely dimorphic Normocytic and hypochromic Elevated ferritin with low iron; awaiting transferrin. Anemia likely secondary to nutritional/chronic disease Ferritin highly elevated to 1492 Expect decrease in hemoglobin after IV hydration Hemoglobin has stabilized Severe malnutrition: BMI 14.4 Likely secondary to poor p.o. intake Continue renal diet Lines: PIV Code status: DNR Diet: Renal DVT prophylaxis: Heparin Disposition: Machine Pack Assembler is working on obtaining a room for the patient at [facility] however a bed will not be available for greater than one-week timeframe. Date of Service: Jul 18, 2025 Billing Provider: IFEOMA CARNEY DO Common Visit Codes: [id number] INP/OBS CARE(MOD) IFEOMA CARNEY DO Jul 18, 2025 18:06
[2025-07-18 20:00] VITALS: RESP 20; O2SAT 96
[2025-07-18 22:00] VITALS: BP 116/71; PULSE 82; RESP 20; TEMP 98.3; O2SAT 99
[2025-07-19 06:36] VITALS: BP 117/65; PULSE 77; RESP 18; TEMP 98.1; O2SAT 97
[2025-07-19 10:00] VITALS: BP 99/63; PULSE 90; RESP 19; TEMP 98.3; O2SAT 97
--- NOTE | 2025-07-19 13:46 | PROGRESS NOTE ---
Daily Progress Note Providers to CC ~ Antibiotic Timeout Antibiotic Ordered?: Yes Subjective Chief complaint none Review of systems negative for all 10 systems reviewed Objective Vital Signs Date Time Temp Pulse Resp B/P (MAP) Pulse Ox O2 Delivery O2 Flow Rate FiO2 07/19/25 10:00 98.3 90 19 99/63 (75) 97 Room Air 07/18/25 22:51 0.0 21 Result Diagram: 07/18/25 0657 07/18/25 0657 Patient is alert and oriented no acute distress thin cachectic gentleman CVS first and second heart sounds are regular rate rhythm there is a 4/6 pansystolic murmur best heard in the rt. sternal border Respiratory system is clear to auscultate bilaterally no rales rhonchi crackles or wheezing Abdomen is soft bowel sounds are positive nontender nondistended Extremities right lower extremities warm to touch Wrapped which I did not remove Coagulation Studies Laboratory Tests Test 07/05/25 20:13 07/15/25 09:16 Activated Partial Thromboplast Time 43 SECONDS (22-32) H D-Dimer 3.51 MG/L FEU (0-0.50) H D-Dimer Comment Prothrombin Time 10.9 SECONDS (9.0-12.0) INR International Normalized Ratio 1.1 INR Coagulation Comments Problem\Assessment\Plan --Cellulitis of the right lower limb: Continue IV antibiotics with IV vancomycin secondary to history of MRSA Continue with the wound care -- superimposed popliteal cyst rupture Dr. Mckeon took the patient to the OR on 07/15 for changing the Hemovac and antibiotic powder placement -leukocytosis secondary to above. Continue to monitor Pending placement to questionable LTAC for IV antibiotics Acute kidney injury: resolved Possibly secondary to vasomotor nephropathy History of methamphetamine abuse UTox positive for methamphetamine Consult with substance abuse navigator Patient advised against abuse of illicit drugs Hyponatremia: POA- resolved Alcohol use disorder: Advised against it Nicotine use disorder: Advised against it Methamphetamine use disorder Homelessness On withdrawal protocol Nicotine patch 14 mg ordered counselled regarding the need to quit smoking and the high-risk behavior explained Substance use navigator and social work professor consulted Anemia: Likely dimorphic Normocytic and hypochromic Elevated ferritin with low iron; awaiting transferrin. Anemia likely secondary to nutritional/chronic disease Ferritin highly elevated to 1492-we will benefit from a r and d lab technician consult as an outpatient Severe malnutrition: BMI 14.4 Likely secondary to poor p.o. intake Continue renal diet Lines: PIV Code status: DNR Diet: Renal DVT prophylaxis: Heparin Disposition: Field Secretary is working on obtaining a room for the patient at [facility] however a bed will not be available for greater than one-week timeframe. Date of Service: Jul 19, 2025 Billing Provider: CASSY CRONIN MD Common Visit Codes: [id number] INP/OBS CARE(HIGH) CASSY CRONIN MD Jul 19, 2025 13:46
[2025-07-19 18:00] VITALS: BP 110/70; PULSE 88; RESP 18; TEMP 98.3; O2SAT 97
[2025-07-19] MEDS: VANCOMYCIN LEVEL IV ONE (18:30)
--- NOTE | 2025-07-19 18:31 | CARDIOLOGY REPORT ---
APPROVED REPORT EXAM: Comprehensive 2D, Doppler, and color-flow Echocardiogram. Patient Location: [address] Blood Pressure: 99/63 mmHg Heart Rate: 86 bpm Rhythm: SINUS Indications MURMUR COPD METHAMPHETAMINE USE Transmitter Chief: none [facility] (EF 75-80%, RVSP 44 mmHg, trace MR, trace TR) 2D Dimensions RVDd 4.0 cm IVSd 0.8 (0.7-1.1cm) LVDd 4.2 cm PWd 0.7 (0.7-1.1cm) IVSs 0.8 (0.8-1.2cm) LVDs 2.3 (2.5-4.0cm) PWs 1.2 (0.8-1.2cm) LVOT Diameter 2.08 (1.8-2.4cm) LVEF(%) 76.3 (>50%) FS (%) 44.6 % SV 60.4 ml CO 5.1 L/min M-Mode Dimensions Left Atrium(MM) 1.96 (2.5-4.0cm) Aortic Root 2.95 (2.2-3.7cm) Aortic Cusp Exc 2.03 (1.5-2.0cm) MV EPSS 0.3 (<0.5cm) Aortic Valve AoV Peak Elio. 150.5 cm/s AoV VTI 25.2 cm AO Peak GR. 9.1 mmHg AO Mean GR. 4 mmHg LVOT VTI 22.57 cm LVOT Peak Elio. 114.0 cm/s ALPA(VTI)/BSA 3.04 cm2/m2 ALPA (VTI) 3.04 cm2 Mitral Valve MV E Velocity 80.6 cm/s MV Peak Gr. 3 mmHg MV DECEL TIME 260 ms MV A Velocity 62.8 cm/s MV PHT 52 ms E/A Ratio 1.3 MVA (PHT) 4.23 cm2 MV VMax89.0 cm/s TDI Medial E' P. V 19.19 cm/s E/Medial E' 4.2 Tricuspid Valve TR P. Velocity 283 cm/s RAP ESTIMATE 10 mmHg TR Peak Gr. 32 mmHg RVSP 42 mmHg Pulmonary Vein S1 Velocity 86.6 cm/s D2 Velocity 58.4 cm/s PVa Qrmcvrhb34.2 cm/s PVa [id number] msec LEFT VENTRICLE Normal LV size and wall thickness. Overall systolic function is hyperdynamic. LVEF is 75-80%. RIGHT VENTRICLE RV is moderately dilated with normal systolic function. RVSP is estimated at 42 mmHg. ATRIA The left atrium size is normal. AORTIC VALVE Trileaflet AV appears mildly sclerotic without stenosis or insufficiency. MITRAL VALVE Mild MV annular calcification and leaflet thickening without stenosis. Trace regurgitation. TRICUSPID VALVE TV appears structurally normal with mild regurgitation. PULMONIC VALVE Normal PV without stenosis, physiologic insufficiency. GREAT VESSELS Aortic root is normal in size. Ascending aorta is normal in size. The IVC is normal in size and colla pses greater than 50% with inspiration. PERICARDIUM Normal pericardium. No effusion. Other Information Study Quality: Adequate Conclusion Normal LV size and wall thickness. Overall systolic function is hyperdynamic. LVEF is 75-80%. RV is moderately dilated with normal systolic function. RVSP is estimated at 42 mmHg. The left atrium size is normal. Trileaflet AV appears mildly sclerotic without stenosis or insufficiency. Mild MV annular calcification and leaflet thickening without stenosis. Trace regurgitation. TV appears structurally normal with mild regurgitation. Normal pericardium. No effusion.
[2025-07-19 19:44] VITALS: RESP 18; O2SAT 97
[2025-07-19 22:00] VITALS: BP 131/79; PULSE 93; RESP 16; TEMP 97.7; O2SAT 97
[2025-07-19 22:34] VITALS: O2SAT 97
[2025-07-20 06:00] VITALS: BP 11/75; PULSE 85; RESP 14; TEMP 98.1; O2SAT 97
[2025-07-20 08:00] VITALS: RESP 14; O2SAT 97
[2025-07-20 10:00] VITALS: BP 97/60; PULSE 89; RESP 16; TEMP 98; O2SAT 96
== END 2025-07-20 14:10 | DRG 364 ==
LOC: ER 15:24 → UNDOADMIN 19:16 → ED HOLD 19:16 → ORTHO 4S 22:20 → SUR 3N 07-10 17:00
PROVIDERS: ADMIT Surgery Surgical Critical Care; ATTEND Internal Medicine
PROC: B32T1ZZ Computerized Tomography (CT Scan) of Left Pulmonary Artery using Low Osmolar Contrast (ICD-10-PCS; 2025-07-06)
PROC: B3201ZZ Computerized Tomography (CT Scan) of Thoracic Aorta using Low Osmolar Contrast (ICD-10-PCS; 2025-07-06)
PROC: B32S1ZZ Computerized Tomography (CT Scan) of Right Pulmonary Artery using Low Osmolar Contrast (ICD-10-PCS; 2025-07-06)
PROC: B42F1ZZ Computerized Tomography (CT Scan) of Right Lower Extremity Arteries using Low Osmolar Contrast (ICD-10-PCS; 2025-07-09)
PROC: 2W1LX6Z Compression of Right Lower Extremity using Pressure Dressing (ICD-10-PCS; 2025-07-10)
PROC: 0J9N0ZZ Drainage of Right Lower Leg Subcutaneous Tissue and Fascia, Open Approach (ICD-10-PCS; principal; 2025-07-10 15:37)
PROC: 0J9N0ZZ Drainage of Right Lower Leg Subcutaneous Tissue and Fascia, Open Approach (ICD-10-PCS; 2025-07-15)
PROC: 0Y9 Anatomical Regions, Lower Extremities, Drainage (ICD-10-PCS; 2025-07-15)
DX: L03.115 Cellulitis of right lower limb (principal); N17.0 Acute kidney failure with tubular necrosis; E43 Unspecified severe protein-calorie malnutrition; E87.1 Hypo-osmolality and hyponatremia; J44.9 Chronic obstructive pulmonary disease, unspecified; Z66 Do not resuscitate; F10.20 Alcohol dependence, uncomplicated; M66.0 Rupture of popliteal cyst; D64.9 Anemia, unspecified; D72.829 Elevated white blood cell count, unspecified; L02.415 Cutaneous abscess of right lower limb; Z59.00 Homelessness unspecified; Z88.2 Allergy status to sulfonamides; Z88.8 Allergy status to other drugs, medicaments and biological substances; Z90.49 Acquired absence of other specified parts of digestive tract; Z68.1 Body mass index [BMI] 19.9 or less, adult
CPT/HCPCS: 36415; 71045; 71275; 73701; 80048; 80053; 80061; 80202; 80305; 81001; 82550; 82570; 82607; 82728; 82948; 83036; 83540; 83605; 83735; 84133; 84145; 84156; 84300; 84466; 85007; 85025; 85379; 85610; 85651; 85730; 87040; 87070; 87075; 87081; 87102; 93306; 93971; 96365; 97116; 97530; 99285; A4215; A4618; A6222; A6250; A6258; A6446; A6449; A7000; G0378; J0665; J0692; J0696; J1100; J1200; J1644; J2003; J2250; J2270; J2405; J2543; J2704; J3010; J3360; J3373; J3374; J3375; J7030; J7040; J7050; J7120; Q9967